=== PATIENT | female | born 1960 | race Two or more races ===

== ENCOUNTER 2019-12-14 11:47 | Outpatient (REF) | payer MEDICARE, MEDICAID, SELFPAY ==
[2019-12-14 13:14] LABS: TSH reflex Free T4 1.12 mIU/mL (0.32-4.0)
[2019-12-15 09:05] LABS: SARS COV2 IgG Positive (Negative)
== END 2019-12-14 11:48 | disposition home or self-care (01) ==
LOC: HO.LAB 11:47
PROVIDERS: PCP Internal Medicine; Visit Provider Internal Medicine
DX: L65.9 Nonscarring hair loss, unspecified (principal); U07.1 COVID-19
CPT/HCPCS: 84443; 86769

== ENCOUNTER 2020-11-06 08:59 | Outpatient (REF) | payer MEDICARE, MEDICAID, SELFPAY ==
[2020-11-06 10:11] LABS: MANUAL DIFF FLAG NO
[2020-11-06 10:17] LABS: Basophils Percent Auto 0.4 % (0-2); Eosinophils Absolute Auto 0.2 X10*3/uL (0.0-0.4); Eosinophils Percent Auto 2.9 % (0-4); Hemoglobin 14.1 g/dl (12.0-16.0); Imm Gran Abs Auto 0.02 X10*3/uL (0.00-0.03); Imm Gran Pct Auto 0.2 % (0.0-0.4); Lymphocytes Absolute Auto 2.4 X10*3/uL (1.2-4.9); Lymphocytes Percent Auto 30.2 % (20-40); Mean Corpuscular Hemoglobin 28.8 pg (27.0-33.0); Mean Platelet Volume 9.5 fL (9.4-12.3); Monocytes Absolute Auto 0.5 X10*3/uL (0.1-1.2); Monocytes Percent Auto 6.2 % (2-11); Neutrophils Absolute Auto 4.8 X10*3/uL (2.0-8.3); Neutrophils Percent Auto 60.1 % (45-73); Platelet Count 325 X10*3/uL (160-400); Red Blood Count 4.89 X10*6/uL (4.20-5.50); Red Cell Distribution Width 12.6 % (11.0-16.0)
[2020-11-06 10:37] LABS: Alanine Aminotransferase 18 U/L (0-31); Albumin Level 3.9 g/dL (3.5-5.0); Alkaline Phosphatase 77 U/L (39-117); Anion Gap 12 (12-20); Aspartate Amino Transferase 14 U/L (5-31); Bilirubin Total 0.5 mg/dL (0.0-1.0); Blood Urea Nitrogen 17 mg/dL (9-16); Calcium 8.9 mg/dL (8.4-10.2); Carbon Dioxide 25 mmol/L (22-29); Chloride 109 mmol/L (96-108); Cholesterol 180 mg/dL; Estimated Glomerular Filt Rate > 60; Glucose Fasting 97 mg/dL (60-99); HDL Cholesterol 52 mg/dL; LDL Cholesterol Calculated 110 mg/dl; Potassium 4.4 mmol/L (3.3-5.1); Sodium 142 mmol/L (135-145); Total Protein 6.1 g/dL (6.5-8.0); Triglycerides 91 mg/dL
[2020-11-12 15:00] LABS: Vitamin D 25-OH, D2 <4 ng/mL; Vitamin D 25-OH, D3 34 ng/mL; Vitamin D 25-OH, Total 34 ng/mL (30-100)
== END 2020-11-06 09:00 | disposition home or self-care (01) ==
LOC: HO.LAB 08:59
PROVIDERS: PCP Internal Medicine; Visit Provider Internal Medicine
DX: G43.909 Migraine, unspecified, not intractable, without status migrainosus (principal); D64.9 Anemia, unspecified; E55.9 Vitamin D deficiency, unspecified; E78.5 Hyperlipidemia, unspecified
CPT/HCPCS: 36415; 80053; 80061; 82306; 85025

== ENCOUNTER 2020-12-10 16:03 | Outpatient (REF) | payer MEDICARE, MEDICAID, SELFPAY ==
--- NOTE | ~2020-12-10 | XR_ITS ---
EXAMINATION: XR CHEST 2 VIEWS CLINICAL INFORMATION: Wheezing. COMPARISON: None. TECHNIQUE: Frontal and lateral views of the chest were obtained. FINDINGS: The heart, great vessels, pulmonary vasculature and mediastinum are normal. The lungs show no focal infiltrate, effusion or pneumothorax. There is bilateral bronchiolar wall thickening. There is no acute osseous abnormality. XR/XR chest 2V IMPRESSION: 1. No focal infiltrate or congestive heart failure seen. 2. There is bilateral bronchiolar wall thickening, which can be associated with acute bronchiolitis or reactive airways disease.
== END 2020-12-10 16:04 | disposition home or self-care (01) ==
LOC: HO.XRAY 16:03
PROVIDERS: PCP Internal Medicine; Visit Provider Internal Medicine
DX: R06.2 Wheezing (principal)
CPT/HCPCS: 71046

== ENCOUNTER 2020-12-24 10:48 | Outpatient (REF) | payer MEDICARE, MEDICAID, SELFPAY ==
[2020-12-24 11:00] LABS: MANUAL DIFF FLAG NO
[2020-12-24 12:09] LABS: Basophils Percent Auto 0.6 % (0-2); Eosinophils Absolute Auto 0.3 X10*3/uL (0.0-0.4); Eosinophils Percent Auto 3.9 % (0-4); Hematocrit 42.9 % (37.0-47.0); Hemoglobin 13.8 g/dl (12.0-16.0); Imm Gran Abs Auto 0.01 X10*3/uL (0.00-0.03); Imm Gran Pct Auto 0.1 % (0.0-0.4); Lymphocytes Absolute Auto 2.9 X10*3/uL (1.2-4.9); Lymphocytes Percent Auto 40.2 % (20-40); Mean Corpuscular HGB Conc 32.2 g/dl (31.0-35.0); Mean Corpuscular Hemoglobin 29.1 pg (27.0-33.0); Mean Corpuscular Volume 90.3 fL (80.0-98.0); Mean Platelet Volume 9.4 fL (9.4-12.3); Monocytes Absolute Auto 0.6 X10*3/uL (0.1-1.2); Monocytes Percent Auto 7.9 % (2-11); Neutrophils Absolute Auto 3.4 x10*3/uL (2.0-8.3); Neutrophils Percent Auto 47.3 % (45-73); Platelet Count 349 X10*3/uL (160-400); Red Blood Count 4.75 X10*6/uL (4.20-5.50); White Blood Count 7.2 X10*3/uL (4.8-10.8)
[2020-12-24 12:40] LABS: Alanine Aminotransferase 20 U/L (0-31); Alkaline Phosphatase 83 U/L (39-117); Anion Gap 11 (12-20); Aspartate Amino Transferase 16 U/L (5-31); Bilirubin Total 0.3 mg/dL (0.0-1.0); Blood Urea Nitrogen 18 mg/dL (9-16); Carbon Dioxide 27 mmol/L (22-29); Chloride 109 mmol/L (96-108); Estimated Glomerular Filt Rate > 60; Glucose Random 104 mg/dL (60-115); Potassium 4.2 mmol/L (3.3-5.1); Sodium 143 mmol/L (135-145); Total Protein 6.4 g/dL (6.5-8.0)
[2020-12-24 12:45] LABS: Thyroid Stimulating Hormone 1.11 uIU/mL (0.32-4.0)
== END 2020-12-24 10:49 | disposition home or self-care (01) ==
LOC: HO.LAB 10:48
PROVIDERS: PCP Internal Medicine; Visit Provider Internal Medicine
DX: R10.9 Unspecified abdominal pain (principal); D64.9 Anemia, unspecified; R63.4 Abnormal weight loss
CPT/HCPCS: 36415; 80053; 84443; 85025

== ENCOUNTER → 2021-05-23 10:57 | Outpatient (BNVA) | payer MEDICARE, MEDICAID, SELFPAY | PROVIDERS: PCP Internal Medicine; Referring Provider Internal Medicine; Visit Provider Internal Medicine Gastroenterology | DX: R10.9 Unspecified abdominal pain (principal); R63.4 Abnormal weight loss; N39.41 Urge incontinence | CPT/HCPCS: 99202 ==

== ENCOUNTER 2021-05-29 08:18 | Day surgery (SDC) | payer MEDICARE, MEDICAID, SELFPAY ==
--- NOTE | 2021-05-28 08:50 | HO.ANESPROP2 ---
Documented by User: Holly Rodrigues NP 05/28/21 08:52 HPI - Anesthesia Eval Consult details Narrative: 60yo F for Upper Endoscopy [facility] Active Problems Active Problems: All Active Problems (Updated 04/15/21 @ 15:11 by Janny Burnett MD) Urge urinary incontinence (Acute) Weight loss (Acute) Abdominal pain (Acute) GERD (gastroesophageal reflux disease) (Acute) Fibromyalgia (Acute) Severe asthma (Acute) Migraines (Acute) Dyslipidemia (Acute) Past Medical History Medical History Abdominal pain Dyslipidemia Fibromyalgia GERD (gastroesophageal reflux disease) Migraines Severe asthma Urge urinary incontinence Weight loss Family History Family History Father Diabetes Mother Diabetes Hypertension Maternal Grandmother Diabetes Maternal Grandfather Diabetes Son In good health Brother In good health Sister In good health Family/Other Mental health disorder Surgical History Surgical History History of total abdominal hysterectomy History of tubal ligation Social History Social History Housing: Apartment Alcohol intake: former Patient Tobacco Use Status: Former Tobacco user Quit Date: 2-3 years ago Tobacco use type: Cigarette e-Cigarette/Vaping Use: Never Used Second Hand Smoke Exposure: No Use of substances other than those prescribed or required for medical reasons: No Are you DNR?: No Advance Directives: No Advance Directives Information Provided: Yes service: No Current occupational status: unemployed Meds Allergies Allergy/AdvReac Type Severity Reaction Status Date / Time statins AdvReac Intermediate elevated Uncoded 05/23/21 11:03 liver enzymes Home Medications Medication Instructions Recorded Confirmed Last Taken Type albuterol sulfate 90 mcg/actuation 2 puff PO Q4H PRN 07/30/20 04/15/21 Unknown History aerosol inhaler alprazolam 1 mg tablet 1 mg PO TID PRN 07/30/20 04/15/21 Unknown History cetirizine 10 mg tablet 10 mg PO BEDTIME 07/30/20 04/15/21 Unknown History citalopram 40 mg tablet 40 mg PO DAILY 07/30/20 04/15/21 Unknown History desvenlafaxine succinate 50 mg 50 mg PO DAILY 07/30/20 04/15/21 Unknown History tablet,extended release 24 hr epinephrine 0.3 mg/0.3 mL 0.3 mg IM ONCE PRN 07/30/20 04/15/21 Unknown History injection, auto-injector estradiol 0.05 mg/24 hr weekly 1 patch TRANSDERMAL QWEEK 07/30/20 04/15/21 Unknown History transdermal patch fluticasone 250 mcg-salmeterol 50 1 ea INHALATION BID 07/30/20 04/15/21 Unknown History mcg/dose blistr powdr for inhalation fluticasone propionate 50 1 spray INTRANASAL DAILY 07/30/20 04/15/21 Unknown History mcg/actuation nasal spray,suspension gabapentin 800 mg tablet 800 mg PO BID 07/30/20 04/15/21 Unknown History hydroxyzine HCl 25 mg tablet [id number] mg PO TID PRN 07/30/20 04/15/21 Unknown History nabumetone 500 mg tablet 500 mg PO BID 07/30/20 04/15/21 Unknown History omalizumab 150 mg subcutaneous mg SUBCUT 07/30/20 04/15/21 Unknown History solution oxybutynin chloride 15 mg 30 mg PO DAILY 07/30/20 04/15/21 Unknown History tablet,extended release 24 hr pantoprazole 40 mg tablet,delayed 40 mg PO DAILY 07/30/20 04/15/21 Unknown History release quetiapine 400 mg tablet,extended 400 mg PO BEDTIME 07/30/20 04/15/21 Unknown History release 24 hr Exam Exam Date and Time: May 28, 2021 0850 Pertinent Lab Results Pertinent Lab Results: Laboratory Tests 12/24/20 12/24/20 10:59 10:59 WBC 7.2 Hgb 13.8 Hct 42.9 Plt Count 349 Sodium 143 Potassium 4.2 Chloride 109 H Carbon Dioxide 27 BUN 18 H Creatinine 0.61 Assessment and Plan Assessment Anesthesia Assessment: Chart Reviewed Documented by User: Yumiko Munoz MD 05/29/21 08:49 [facility] Past Medical History Medical History Abdominal pain Dyslipidemia Fibromyalgia GERD (gastroesophageal reflux disease) Migraines Severe asthma Urge urinary incontinence Weight loss Family History Family History Father Diabetes Mother Diabetes Hypertension Maternal Grandmother Diabetes Maternal Grandfather Diabetes Son In good health Brother In good health Sister In good health Family/Other Mental health disorder Family history of problems with anesthesia: No Surgical History Surgical History History of total abdominal hysterectomy History of tubal ligation History of Problems with Anesthesia: No Social History Social History Housing: Apartment Alcohol intake: former Patient Tobacco Use Status: Former Tobacco user Quit Date: 2-3 years ago Tobacco use type: Cigarette e-Cigarette/Vaping Use: Never Used Second Hand Smoke Exposure: No Use of substances other than those prescribed or required for medical reasons: No Are you DNR?: No Advance Directives: No Advance Directives Information Provided: Yes service: No Current occupational status: unemployed Meds Allergies Allergy/AdvReac Type Severity Reaction Status Date / Time statins AdvReac Intermediate elevated Uncoded 05/23/21 11:03 liver enzymes Home Medications Medication Instructions Recorded Confirmed Last Taken Type albuterol sulfate 90 mcg/actuation 2 puff PO Q4H PRN 07/30/20 04/15/21 Unknown History aerosol inhaler alprazolam 1 mg tablet 1 mg PO TID PRN 07/30/20 04/15/21 Unknown History cetirizine 10 mg tablet 10 mg PO BEDTIME 07/30/20 04/15/21 Unknown History citalopram 40 mg tablet 40 mg PO DAILY 07/30/20 04/15/21 Unknown History desvenlafaxine succinate 50 mg 50 mg PO DAILY 07/30/20 04/15/21 Unknown History tablet,extended release 24 hr epinephrine 0.3 mg/0.3 mL 0.3 mg IM ONCE PRN 07/30/20 04/15/21 Unknown History injection, auto-injector estradiol 0.05 mg/24 hr weekly 1 patch TRANSDERMAL QWEEK 07/30/20 04/15/21 Unknown History transdermal patch fluticasone 250 mcg-salmeterol 50 1 ea INHALATION BID 07/30/20 04/15/21 Unknown History mcg/dose blistr powdr for inhalation fluticasone propionate 50 1 spray INTRANASAL DAILY 07/30/20 04/15/21 Unknown History mcg/actuation nasal spray,suspension gabapentin 800 mg tablet 800 mg PO BID 07/30/20 04/15/21 Unknown History hydroxyzine HCl 25 mg tablet [id number] mg PO TID PRN 07/30/20 04/15/21 Unknown History nabumetone 500 mg tablet 500 mg PO BID 07/30/20 04/15/21 Unknown History omalizumab 150 mg subcutaneous mg SUBCUT 07/30/20 04/15/21 Unknown History solution oxybutynin chloride 15 mg 30 mg PO DAILY 07/30/20 04/15/21 Unknown History tablet,extended release 24 hr pantoprazole 40 mg tablet,delayed 40 mg PO DAILY 07/30/20 04/15/21 Unknown History release quetiapine 400 mg tablet,extended 400 mg PO BEDTIME 07/30/20 04/15/21 Unknown History release 24 hr Exam Airway Mallampati Class: II TM Dist: >3cm Neck ROM: Full Assessment and Plan Assessment Anesthesia Assessment: Anesthesia Plan Discussed Final Anesthetic Review Family History of Problems with Anesthesia: No History of Problems with Anesthesia: No NPO: Yes ASA Class: II Final Preanesthetic Review: No Changes in Pt Med Stat, Meds/Allgs Chart Reviewed, Consent Obtained/Reviewed and Anes Risks/Benef Reviewed Patient Risk: Intermediate Procedure Risk: Low Anesthetic Plan Anesthetic Plan: MAC: Disposition: Standard PACU
[2021-05-29] VITALS (8 sets, daily range): BP systolic 103–138; BP diastolic 64–86; PULSE 88–105; RESP 16–20; TEMP 36.2–36.6; O2SAT 95–100; BMI 19.5
[2021-05-29] MEDS: Lactated Ringers 1,000 ML 100 ML IVCONT (08:52)
--- NOTE | 2021-05-29 09:09 | MHC.SHP ---
Pre-Procedural Eval Section A Date of Service: 05/29/21 The patient is an INPATIENT: No The History & Physical has been completed within 30 days and I have reviewed it.: Yes Section B Chief Complaint: pain and wt loss Relevant Family History (Specify if Yes): No Relevant Social History: None Present Medications: see Short Stay Collaborative assessment Medical History: Significant History (Abdominal pain Dyslipidemia Fibromyalgia GERD (gastroesophageal reflux disease) Migraines Severe asthma Urge urinary incontinence Weight loss) History of Previous Operations: Relevant previous surgery/procedure and date(s) (History of total abdominal hysterectomy History of tubal ligation) Allergies: Allergies Allergy/AdvReac Type Severity Reaction Status Date / Time statins AdvReac Intermediate elevated Uncoded 05/23/21 11:03 liver enzymes Review of Systems Sugical H&P ROS: Negative: Constitution, Cardiovascular, Respiratory, Neurological, Psychiatric, Hem-Onc, Allergic/Immunologic, Gastrointestinal, Genitourinary, Musculoskeletal, Integumentary, Endocrine and Eyes/Ears/Nose/Throat Exam Surgical H&P Exam: Normal: HEENT, Normal: Heart, Normal: Lungs, Normal: Extremities, Normal: Abdomen, Normal: Skin and Normal: Neurological Plan Diagnosis/Plan: Unchanged I have reviewed the history and physical and performed a pertinent physical examination on my patient. No changes have occurred unless specified.
--- NOTE | 2021-05-29 09:20 | P.BOP_ITS ---
Brief Operative Note Date of Service: 05/29/21 Pre-op diagnosis: weight loss, dysphagia, abdominal pain Post-op diagnosis: same Procedure: see op note Surgeon: Jorge Cheek MD Anesthesia: MAC Was an Psychiatric Cns used for this Procedure?: No Estimated blood loss (mL): 0 Condition: stable Disposition: PACU
--- NOTE | 2021-05-29 09:21 | W.PM.OPN ---
Operative Note Operative Note Date of Service: 05/29/21 Narrative: Procedure Description: EGD Indication: weight loss, dysphagia, abdominal pain Anesthesia: MAC FLEXIBLE TRANSORAL UPPER GASTROINTESTINAL ENDOSCOPY UPPER ENDOSCOPY Consent: Indications for the procedure and potential complications of bleeding, perforation, reaction to medications and missed diagnosis were discussed with the patient and informed consent was obtained. Instrument: Olympus GIF H 190 J mid size upper endoscope Monitoring: Vital signs and clinical assessment, continuous EKG monitoring, Pulse oximetry, Carbon Dioxide monitoring and blood pressure monitoring were done throughout the procedure. Procedure: The patient was placed in the left lateral decubitis position and pre-procedure medications were administered and a bite block was placed. The endoscope was inserted into the mouth and advanced under direct vision to the third part of duodenum. A careful inspection was made as the upper endoscope was withdrawn including a retroflexed examination of the proximal stomach; Findings and interventions are described below. Findings: Larynx:normal Esophagus: GE junction at 38 cm, diaphragm hiatus at 38 cm, mild esophagitis, bx taken from GEJ and proximal and distal esophagus in separate jars. Ballon dilation done at LES to 20 mm- no tear seen, then proximal esophagus with superficial tear and some heme noted. There did appear to be tertiary contractions. Stomach: mild patchy gastric erythema. Biopsies were obtained. Grade 2 flap valve on retroflexed examination of the cardia. There was no observable gastric movement for the time of the procedure. Duodenum: Normal bulb and descending duodenum, bx taken Intervention: Biopsies as noted above, ballon dilation Impression/Findings: esophagitis esophageal and gastric dysmotility gastritis proximal esophgeal stricture PLAN: assess compliance with PPI--if taking correctly then can increase to BID CT A/P for further work up of weight loss if above neg then further w/u might include GES and esophageal manometry
--- NOTE | 2021-05-29 09:42 | HO.ANESPROP2 ---
[facility] Active Problems Active Problems: All Active Problems (Updated 04/15/21 @ 15:11 by Janny Burnett MD) Urge urinary incontinence (Acute) Weight loss (Acute) Abdominal pain (Acute) GERD (gastroesophageal reflux disease) (Acute) Fibromyalgia (Acute) Severe asthma (Acute) Migraines (Acute) Dyslipidemia (Acute) Past Medical History Medical History Abdominal pain Dyslipidemia Fibromyalgia GERD (gastroesophageal reflux disease) Migraines Severe asthma Urge urinary incontinence Weight loss Family History Family History Father Diabetes Mother Diabetes Hypertension Maternal Grandmother Diabetes Maternal Grandfather Diabetes Son In good health Brother In good health Sister In good health Family/Other Mental health disorder Family history of problems with anesthesia: No Surgical History Surgical History History of total abdominal hysterectomy History of tubal ligation History of Problems with Anesthesia: No Social History Social History Housing: Apartment Alcohol intake: former Patient Tobacco Use Status: Former Tobacco user Quit Date: 2-3 years ago Tobacco use type: Cigarette e-Cigarette/Vaping Use: Never Used Second Hand Smoke Exposure: No Use of substances other than those prescribed or required for medical reasons: No Are you DNR?: No Advance Directives: No Advance Directives Information Provided: Yes service: No Current occupational status: unemployed Meds Allergies Allergy/AdvReac Type Severity Reaction Status Date / Time statins AdvReac Intermediate elevated Uncoded 05/23/21 11:03 liver enzymes Active Medications: Current Medications Albuterol Sulfate (Albuterol Sulfate (0.083%) 2.5 Mg/3 Ml Vial.Neb) 2.5 mg INHALE ONCE PRN PRN Reason: Shortness of Breath/Wheezing Lactated Ringer's (Lr) 1,000 mls @ 100 mls/hr IVCONT .Q10H HERRERA Last Admin: 05/29/21 08:52 Dose: 100 mls/hr Documented by: Home Medications Medication Instructions Recorded Confirmed Last Taken Type albuterol sulfate 90 mcg/actuation 2 puff PO Q4H PRN 07/30/20 04/15/21 Unknown History aerosol inhaler alprazolam 1 mg tablet 1 mg PO TID PRN 07/30/20 04/15/21 Unknown History cetirizine 10 mg tablet 10 mg PO BEDTIME 07/30/20 04/15/21 Unknown History citalopram 40 mg tablet 40 mg PO DAILY 07/30/20 04/15/21 Unknown History desvenlafaxine succinate 50 mg 50 mg PO DAILY 07/30/20 04/15/21 Unknown History tablet,extended release 24 hr epinephrine 0.3 mg/0.3 mL 0.3 mg IM ONCE PRN 07/30/20 04/15/21 Unknown History injection, auto-injector estradiol 0.05 mg/24 hr weekly 1 patch TRANSDERMAL QWEEK 07/30/20 04/15/21 Unknown History transdermal patch fluticasone 250 mcg-salmeterol 50 1 ea INHALATION BID 07/30/20 04/15/21 Unknown History mcg/dose blistr powdr for inhalation fluticasone propionate 50 1 spray INTRANASAL DAILY 07/30/20 04/15/21 Unknown History mcg/actuation nasal spray,suspension gabapentin 800 mg tablet 800 mg PO BID 07/30/20 04/15/21 Unknown History hydroxyzine HCl 25 mg tablet [id number] mg PO TID PRN 07/30/20 04/15/21 Unknown History nabumetone 500 mg tablet 500 mg PO BID 07/30/20 04/15/21 Unknown History omalizumab 150 mg subcutaneous mg SUBCUT 07/30/20 04/15/21 Unknown History solution oxybutynin chloride 15 mg 30 mg PO DAILY 07/30/20 04/15/21 Unknown History tablet,extended release 24 hr pantoprazole 40 mg tablet,delayed 40 mg PO DAILY 07/30/20 04/15/21 Unknown History release quetiapine 400 mg tablet,extended 400 mg PO BEDTIME 07/30/20 04/15/21 Unknown History release 24 hr Exam Exam Date and Time: May 29, 2021 0942 Height,Weight and Vital Signs: Height 5 ft 3 in Weight 49.895 kg Last Vital Signs Temp 98 F 05/29/21 08:51 Pulse 88 05/29/21 08:51 Resp 16 05/29/21 08:51 BP 138/86 05/29/21 08:51 Pulse Ox 100 05/29/21 08:51 Airway Mallampati Class: II TM Dist: >3cm Neck ROM: Full Assessment and Plan Assessment Anesthesia Assessment: Anesthesia Plan Discussed, Smoking Cess. Discussed and Chart Reviewed Final Anesthetic Review Family History of Problems with Anesthesia: No History of Problems with Anesthesia: No NPO: Yes
--- NOTE | 2021-05-29 10:57 | PC.NURSE ---
UDN GIVEN TO PT FOR BRONCHOSPASTIC COUGH, AND LEFT UPPER INSP WHEEZE. UNRELIEVED AFTER 2 PUFFS ALBUTEROL MDI, PT'S. NOTIFIED DR. KING AND DR. MENDENHALL. 11:00 R.T. GIVING TREATMENT
[2021-05-29] MEDS: Albuterol Sulfate (0.083%) 2.5 MG/3 ML VIAL.NEB INHALE (11:01)
== END 2021-05-29 11:28 | disposition home or self-care (01) ==
PROVIDERS: PCP Internal Medicine; Visit Provider Internal Medicine Gastroenterology
PROC: 0DJ08ZZ Inspection of Upper Intestinal Tract, Via Natural or Artificial Opening Endoscopic (ICD-10-PCS; CPT 43235; principal; 2021-05-29 09:30)
DX: R10.11 Right upper quadrant pain (principal); R63.4 Abnormal weight loss; K22.2 Esophageal obstruction; K22.4 Dyskinesia of esophagus; K20.90 Esophagitis, unspecified without bleeding; K59.9 Functional intestinal disorder, unspecified; K44.9 Diaphragmatic hernia without obstruction or gangrene; K75.81 Nonalcoholic steatohepatitis (NASH); J45.998 Other asthma; E78.5 Hyperlipidemia, unspecified; M54.50 Low back pain, unspecified; G89.29 Other chronic pain; N39.41 Urge incontinence; Z88.8 Allergy status to other drugs, medicaments and biological substances; Z87.891 Personal history of nicotine dependence; Z98.890 Other specified postprocedural states
CPT/HCPCS: 43249; 43239; 88305; 88342; 94640; J2250; J3010

== ENCOUNTER 2021-06-05 10:55 | Outpatient (REF) | payer MEDICARE, MEDICAID, SELFPAY ==
[2021-06-05 11:13] LABS: MANUAL DIFF FLAG NO
[2021-06-05 11:38] LABS: Basophils Percent Auto 0.4 % (0-2); Eosinophils Absolute Auto 0.1 X10*3/uL (0.0-0.4); Eosinophils Percent Auto 1.1 % (0-4); Hematocrit 41.9 % (37.0-47.0); Hemoglobin 13.5 g/dl (12.0-16.0); Imm Gran Abs Auto 0.02 X10*3/uL (0.00-0.03); Imm Gran Pct Auto 0.3 % (0.0-0.4); Lymphocytes Absolute Auto 2.2 X10*3/uL (1.2-4.9); Lymphocytes Percent Auto 31.3 % (20-40); Mean Corpuscular HGB Conc 32.2 g/dl (31.0-35.0); Mean Corpuscular Hemoglobin 29.2 pg (27.0-33.0); Mean Corpuscular Volume 90.5 fL (80.0-98.0); Mean Platelet Volume 9.3 fL (9.4-12.3); Monocytes Absolute Auto 0.4 X10*3/uL (0.1-1.2); Neutrophils Absolute Auto 4.4 x10*3/uL (2.0-8.3); Neutrophils Percent Auto 61.9 % (45-73); Platelet Count 316 X10*3/uL (160-400); Red Blood Count 4.63 X10*6/uL (4.20-5.50); Red Cell Distribution Width 12.9 % (11.0-16.0)
[2021-06-05 12:07] LABS: Appearance Urine CLEAR; Color Urine YELLOW; Glucose Urine UA NEG (NEG); Leukocyte Esterase Urine NEG (NEG); Nitrite Urine NEG (NEG); Urine Blood NEG (NEG); Urine Ketones NEG (NEG); Urine Protein NEG (NEG-TRACE)
[2021-06-05 12:23] LABS: ~Hepatitis C Antibody Nonreactive (Nonreactive)
[2021-06-05 12:25] LABS: Alanine Aminotransferase 34 U/L (0-31); Albumin Level 4.3 g/dL (3.5-5.0); Alkaline Phosphatase 81 U/L (39-117); Anion Gap 10 (12-20); Aspartate Amino Transferase 26 U/L (5-31); Bilirubin Total 0.7 mg/dL (0.0-1.0); Blood Urea Nitrogen 15 mg/dL (9-16); Calcium 9.4 mg/dL (8.4-10.2); Carbon Dioxide 27 mmol/L (22-29); Chloride 108 mmol/L (96-108); Cholesterol 255 mg/dL; Estimated Glomerular Filt Rate > 60; Ferritin 409 ng/mL (10-250); Glucose Random 96 mg/dL (60-115); HDL Cholesterol 67 mg/dL; LDL Cholesterol Calculated 177 mg/dl; Potassium 4.1 mmol/L (3.3-5.1); Sodium 141 mmol/L (135-145); TSH reflex Free T4 0.72 uIU/mL (0.32-4.0); Triglycerides 57 mg/dL
[2021-06-05 12:30] LABS: HIV AB/AG Nonreactive (Nonreactive); Hepatitis B Core Antibody Nonreactive (Nonreactive); Hepatitis B Surface Antigen Negative (Negative); ~HepC Num1 0.12 S/CO (0.00-0.79); ~Hepatitis B Surface Antibody NONREACTIVE (Nonreactive)
[2021-06-05 12:46] LABS: Folate 15.8 ng/mL (> or = 4.0); Vitamin B12 449 pg/mL (200-900)
[2021-06-05 15:15] LABS: EOS Counted 0 CELLS; EOS QC POS YES; EOS Stain Quality OK YES; WBC, Counted 100 CELLS
[2021-06-06 09:56] LABS: HBS Num1 1.07 mIU/mL (0-7.99); HBc Num1 0.05 S/CO (0.00-0.79); HBsAGNum1 0.17 S/CO (0.00-0.99); HIV Num 1 0.07 S/CO (0.00-0.99)
[2021-06-06 11:26] LABS: Hepatitis A Antibody IgM 0.25 Index (0-0.79); ~Hepatitis A Antibody IgM Nonreactive (Nonreactive)
[2021-06-10 15:36] LABS: Fecal Fat Qualitative Normal (Normal)
[2021-06-11 14:11] LABS: Transglutaminase Ab IgG <1.0 U/mL; Transglutaminase IgA <1.0 U/mL
[2021-06-14 17:22] LABS: Pancreatic Elastase-1 >500 mcg/g
== END 2021-06-05 10:56 | disposition home or self-care (01) ==
LOC: HO.LAB 10:55
PROVIDERS: PCP Internal Medicine; Visit Provider Internal Medicine Gastroenterology
DX: Z11.4 Encounter for screening for human immunodeficiency virus [HIV] (principal); K75.81 Nonalcoholic steatohepatitis (NASH); N39.41 Urge incontinence; R10.9 Unspecified abdominal pain; R63.4 Abnormal weight loss; R30.0 Dysuria; G89.29 Other chronic pain; R10.33 Periumbilical pain; E78.5 Hyperlipidemia, unspecified
CPT/HCPCS: 36415; 80053; 80061; 81003; 82607; 82656; 82705; 82728; 82746; 84443; 85025; 86140; 86364; 86704; 86706; 86709; 86803; 87340; 87389; 89190

== ENCOUNTER 2021-06-11 09:42 | Outpatient (REF) | payer MEDICARE, MEDICAID, SELFPAY ==
--- NOTE | ~2021-06-11 | US_ITS ---
EXAMINATION: US COMPLETE ABDOMEN WITH LIVER ELASTOGRAPHY CLINICAL INFORMATION: Weight loss, right upper quadrant pain. COMPARISON: Abdominal ultrasound dated 01/25/2018. TECHNIQUE: Real-time imaging of the abdominal viscera. Noninvasive ultrasound liver fibrosis assessment is performed using Lenora ElastPQ point quantification shear wave elastography (2D-SWE) with a C5-2 MHz transducer. Multiple elastography samples are obtained. FINDINGS: PANCREAS: Visualized portions unremarkable. ABDOMINAL AORTA: Visualized portions unremarkable. INFERIOR VENA CAVA: Visualized portions unremarkable. LIVER: Homogeneous echotexture without focal abnormality. The right lobe measures 11.6 cm in length. The left lobe measures 8.3 cm in length. Portal flow is hepatopedal. Shear wave liver elastography median stiffness is 1.51 m/s (reference: normal median stiffness is 1.3 m/s or less). IQR/median stiffness to assess sampling precision is 0.16 (reference: good quality data set is IQR/median stiffness of 0.15 or less). GALLBLADDER: Unremarkable. COMMON BILE DUCT: Normal in caliber measuring 0.2 cm in diameter. RIGHT KIDNEY: 9.9 cm. Anechoic cyst in the lower pole measures 2.2 cm. LEFT KIDNEY: 10.0 cm. An anechoic cyst in the interpolar region measures 1.1 cm. An interpolar echogenic focus measures 0.4 cm. SPLEEN: 7.3 cm. Unremarkable. FREE FLUID: None. US/US abdomen comp w elastography IMPRESSION: 1. Renal cysts bilaterally demonstrate benign features. Tiny echogenic focus in the left kidney is nonspecific, but demonstrates benign features. This could represent a tiny angiomyolipoma. 2. Liver elastography: Compensated advanced chronic liver disease is ruled out.No focal hepatic abnormality. REFERENCE: Society of Radiologists in Ultrasound Liver Stiffness Thresholds (2020): LIVER STIFFNESS THRESHOLDS: *Liver Stiffness equal or less than 1.3 m/s: High probability of being normal. *Liver Stiffness less than 1.7 m/s: In the absence of other known clinical signs, rules out compensated advanced chronic liver disease. *Liver Stiffness 1.7-2.1 m/s: Suggestive of compensated advanced chronic liver disease but need further test for confirmation. *Liver Stiffness over 2.1 m/s: Rules in compensated advanced chronic liver disease. *Liver Stiffness over 2.4 m/s: Suggestive of clinically significant portal hypertension. QUALITY OF DATA SET: *IQR/Median value equal or less than 0.15 implies a quality data set. *IQR/Median value over 0.15 implies a poor quality data set. SIGNIFICANT CHANGE FROM PRIOR EXAM: Significant change if liver stiffness measurement is 10% or greater from prior exam. OTHER CONSIDERATIONS: The stage of liver fibrosis may be overestimated in the setting of acute hepatitis, liver inflammation, elevated liver function tests, hepatic vascular congestion, obstructive cholestasis, non-fasting state, and infiltrative diseases such as amyloidosis and lymphoma. In some patients with NAFLD, the liver stiffness thresholds for compensated advanced chronic liver disease may be lower. In causes other than viral hepatitis and NAFLD, liver stiffness thresholds are not well established.
== END 2021-06-11 09:43 | disposition home or self-care (01) ==
LOC: HO.US 09:42
PROVIDERS: Visit Provider Internal Medicine Gastroenterology
DX: R10.9 Unspecified abdominal pain (principal); R63.4 Abnormal weight loss
CPT/HCPCS: 76705; 76981

== ENCOUNTER 2021-12-04 13:51 | Outpatient (REF) | payer MEDICARE, MEDICAID, SELFPAY ==
[2021-12-04 14:47] LABS: Alanine Aminotransferase 16 U/L (0-31); Albumin Level 4.2 g/dL (3.5-5.0); Alkaline Phosphatase 82 U/L (39-117); Anion Gap 16 (12-20); Aspartate Amino Transferase 17 U/L (5-31); Bilirubin Total 0.9 mg/dL (0.0-1.0); Blood Urea Nitrogen 18 mg/dL (9-16); Calcium 8.6 mg/dL (8.4-10.2); Carbon Dioxide 22 mmol/L (22-29); Chloride 108 mmol/L (96-108); Cholesterol 251 mg/dL; Estimated Glomerular Filt Rate > 60; Glucose Fasting 96 mg/dL (60-99); HDL Cholesterol 67 mg/dL; LDL Cholesterol Calculated 155 mg/dl; Potassium 4.1 mmol/L (3.3-5.1); Sodium 142 mmol/L (135-145); Total Protein 6.7 g/dL (6.5-8.0); Triglycerides 149 mg/dL
== END 2021-12-04 13:52 | disposition home or self-care (01) ==
LOC: HO.LAB 13:51
PROVIDERS: PCP Internal Medicine; Visit Provider Internal Medicine
DX: K21.9 Gastro-esophageal reflux disease without esophagitis (principal); E78.5 Hyperlipidemia, unspecified
CPT/HCPCS: 36415; 80053; 80061

== ENCOUNTER 2022-05-28 14:14 | Outpatient (REF) | payer MEDICARE, MEDICAID, SELFPAY ==
--- NOTE | ~2022-05-28 | US_ITS ---
EXAMINATION: US VENOUS ULTRASOUND WITH DOPPLER LOWER EXTREMITY, LEFT CLINICAL INFORMATION: Pain left leg COMPARISON: None available. TECHNIQUE: Ultrasound of the deep veins is performed from the hip to the calf with compression sonography and color and pulse Doppler assessment. Spectral analysis with color-flow imaging is performed. FINDINGS: There is normal venous compression and respiratory variation and augmented flow. The visualized common femoral vein, superficial femoral vein, profunda femoral vein, popliteal vein, and the trifurcation region shows no evidence of deep venous thrombosis. There is no significant popliteal fossa cyst. If the patient's symptoms persist, followup ultrasound in 5 days 7 days might be of value to exclude proximal propagation from a non-visualized calf vein. US/US venous duplex LE LT IMPRESSION: No DVT demonstrated in the left lower extremity.
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
== END 2022-05-28 14:15 | disposition home or self-care (01) ==
LOC: HO.US 14:14
PROVIDERS: PCP Internal Medicine; Visit Provider Internal Medicine
DX: M79.605 Pain in left leg (principal); S92.902A Unspecified fracture of left foot, initial encounter for closed fracture; X58.XXXA Exposure to other specified factors, initial encounter; Y93.9 Activity, unspecified; Y92.9 Unspecified place or not applicable; Y99.9 Unspecified external cause status
CPT/HCPCS: 73620; 93971

== ENCOUNTER 2022-06-04 07:52 | Outpatient (REF) | payer MEDICARE, MEDICAID, SELFPAY ==
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
== END 2022-06-04 07:53 | disposition home or self-care (01) ==
LOC: HO.CT 07:52
PROVIDERS: PCP Internal Medicine; Visit Provider Internal Medicine
DX: S06.0XAA Concussion with loss of consciousness status unknown, initial encounter (principal)
CPT/HCPCS: 70450

== ENCOUNTER 2022-07-07 13:18 | Outpatient (REF) | payer MEDICARE, MEDICAID, SELFPAY ==
--- NOTE | ~2022-07-07 | XR_ITS ---
EXAMINATION: XR LUMBOSACRAL SPINE CLINICAL INFORMATION: Low back pain COMPARISON: None available. TECHNIQUE: Three views of the lumbosacral spine. FINDINGS: Bone alignment is normal. No fracture or dislocation. Normal disc spaces. Mild degenerative spondylosis at L2-L3 and L4-L5. Lower lumbar spine facet arthritis. Mild atherosclerotic disease. XR/XR lumbar spine 2-3V IMPRESSION: Mild degenerative changes.
--- NOTE | ~2022-07-07 | XR_ITS ---
EXAMINATION: XR HIP, RIGHT CLINICAL INFORMATION: Pain COMPARISON: None available. TECHNIQUE: Two views of the right hip. FINDINGS: Bone alignment is normal. No fracture or dislocation. Mild arthritis at the right hip joint with small osteophytes. Soft tissues are normal. XR/XR hip RT min 2V IMPRESSION: Mild arthritis.
== END 2022-07-07 13:19 | disposition home or self-care (01) ==
LOC: HO.XRAY 13:18
PROVIDERS: PCP Internal Medicine; Visit Provider Internal Medicine
DX: M25.551 Pain in right hip (principal); M54.50 Low back pain, unspecified
CPT/HCPCS: 72100; 73502

== ENCOUNTER 2022-08-10 14:27 | Outpatient (REF) | payer MEDICARE, MEDICAID, SELFPAY ==
--- NOTE | ~2022-08-10 | US_ITS ---
EXAMINATION: US PELVIS CLINICAL INFORMATION: Pelvic and perineal pain; there is a history of prior hysterectomy and right oophorectomy. COMPARISON: None available. TECHNIQUE: Ultrasound of the pelvis is performed using both transabdominal and transvaginal transducers along with Doppler. Transvaginal imaging is performed due to inadequate visualization transabdominally. FINDINGS: Uterus: The uterus is surgically absent. The cervical remnant is unremarkable. Adnexa: There is normal color flow to the adnexa. There is no ovarian torsion. There is no pelvic ascites or fluid collection. Right ovary is surgically absent. Left ovary measures 1.2 x 1.1 x 0.9 cm, volume 0.6 mL. US/US pelvic and transvaginal IMPRESSION: 1. The uterus and right ovary are surgically absent. 2. Otherwise, unremarkable examination.
== END 2022-08-10 14:28 | disposition home or self-care (01) ==
LOC: HO.US 14:27
PROVIDERS: PCP Internal Medicine; Visit Provider Internal Medicine
DX: R10.2 Pelvic and perineal pain (principal)
CPT/HCPCS: 76830; 76856

== ENCOUNTER 2022-11-02 11:53 | Outpatient (AMB) | payer MEDICARE, MEDICAID, SELFPAY ==
[2022-11-02 12:24] VITALS: BP 110/62; PULSE 102; TEMP 36.6; O2SAT 98; BMI 22.3
--- NOTE | 2022-11-02 12:24 | AM.OFFWIN_ITS ---
Intake Vital Signs 11/02/22 12:24 Height 5 ft 3 in Weight 126 lb BMI 22.3 BP 110/62 Blood Pressure Location Rt brachial Position Sitting Pulse 102 H Pulse Source Pulse Oximeter Temp 97.8 F Temp Source Temporal Artery Scan Pulse Oximetry (%) 98 Oxygen Delivery Method Room Air Intake Visit Reasons: EP Sore Throat/Ear/Dizzy Weak (masked) Intake Note: pt is here for c.o sore throat, ear discomfort, dizzy/wekness Patient Tobacco Use Status: Former Tobacco user Quit Date: 2-3 years ago Allergies statins Adverse Reaction (Intermediate, Uncoded 11/02/22 12:24) elevated liver enzymes Do you need a note to return to daycare/school/sports/work: Yes HPI HPI Comments History of Present Illness Details This is a 61 year old female with a past medical history of asthma, hepatic steatosis and hyperlipidemia presenting for evaluation of sore throat and weakness that she has had since Wednesday morning. She also reports generalized weakness and lightheadedness. Patient has used Chloraseptic spray only for treatment of her sore throat. She denies having any fevers, chills, ear pain, difficulty swallowing, cough, shortness of breath or chest pain. Patient denies any sick contacts and is requesting a test for COVID-19. [facility] Medical History Urge urinary incontinence Weight loss Abdominal pain GERD (gastroesophageal reflux disease) Fibromyalgia Severe asthma Migraines Dyslipidemia Surgical History History of total abdominal hysterectomy History of tubal ligation Family History Father Diabetes Mother Diabetes Hypertension Maternal Grandmother Diabetes Maternal Grandfather Diabetes Son In good health Brother In good health Sister In good health Family/Other Mental health disorder Social History Housing: Apartment Alcohol intake: former Patient Tobacco Use Status: Former Tobacco user Quit Date: 2-3 years ago Tobacco use type: Cigarette e-Cigarette/Vaping Use: Never Used Second Hand Smoke Exposure: No service: No Current occupational status: unemployed Cognitive needs: Yes (cane) Hearing needs: No Vision needs: No Review of Systems Const All systems reviewed & are unremarkable except as noted in HPI and below Denies chills, Denies fever(s), Reports lethargy and Reports weakness Eyes Reports as per HPI ENT Denies otalgia, Denies facial pain, Denies mouth lesions, Denies sinus pain, Reports sore throat and Denies throat swelling Card Reports no additional complaints Resp Reports no additional complaints GI Reports no additional complaints Neuro Reports weakness Psych Reports no additional complaints Ralph/Lymph Reports lymphadenopathy (right cervical adenopathy) Aller/Immun Denies throat swelling Physical Exam Vital Signs: Last Vital Signs Temp 97.8 F 11/02/22 12:24 Pulse 102 H 11/02/22 12:24 BP 110/62 11/02/22 12:24 Pulse Ox 98 11/02/22 12:24 Oxygen Delivery Method Room Air 11/02/22 12:24 BMI result Body Mass Index 22.3 Const General: comfortable, no acute distress, well developed and well groomed Nutritional Appearance: average body habitus Orientation/consciousness: patient oriented x3 Limitations: no limitations HEENT Head: Yes normal to inspection Ears: external ears normal and TM's normal bilaterally General nose exam: Normal external nose present Mouth: Normal oral and palatal mucosa present and moist mucous membranes Throat: Yes posterior oropharynx abnormal (mild erythema without edema or exudates) and Yes tonsils absent Eyes General: appearance normal, both eyes and all related structures Conjunctivae: conjunctivae normal Sclerae: sclerae normal Pupils: Equal, round and reactive pupils present EOM: EOMs intact bilaterally Neck Neck: Yes lymphadenopathy (right posterior cervical; single node palpable and non.tender) Resp Effort & Inspection: normal respiratory effort Auscultation: clear to auscultation bilaterally Cardio Rate: regular rate Rhythm: regular rhythm Skin General skin exam: no rashes or lesions noted Neuro General: patient oriented x3 Cranial nerves: Yes Equal, round and reactive pupils present Psych Appearance: grossly normal Mental Status: mental status grossly normal Speech and movement: Normal speech and movement present Affect: normal affect Attitude: cooperative Thought process: Normal thought process present Thought content: Normal thought content present Insight: Good insight present (Psych) Judgement: Good judgement present (Psych) Results AMB Rapid Strep AMB Rapid Strep Negative Last Edit by Kenney Hawk CMA on 11/02/22 12 :34 Results Reviewed Results Reviewed: Laboratory Last Values Strep Scn Rapid Clinic Negative 11/02/22 12:32 Assessment & Plan Assessment & Plan (1) Weakness: Code(s): R53.1 - Weakness Plan: Patient seen and evaluated. Her rapid strep test is negative. Patient will be sent to laboratory for a COVID test and will be discharged home. Patient is encouraged to use ibuprofen as needed for her acute pharyngitis; COVID result is pending. 2pm: COVID testing reviewed and is negative. (2) Acute pharyngitis: Code(s): J02.9 - Acute pharyngitis, unspecified Qualifiers: Pharyngitis/tonsillitis etiology: unspecified etiology Qualified Code(s): J02.9 - Acute pharyngitis, unspecified Orders: Orders BinaxNOW Covid-19 Ag Today J02.9 - Acute pharyngitis, unspecified, R53.1 - Weakness Geetha Hassan PA-C AMB Rapid Strep Screen Today Z13.9 - Encounter for screening, unspecified Jimmy Sneed MD Coding Level of Care Code Est Pt Level 3 (38441) Diagnoses Weakness R53.1 Acute pharyngitis, unspecified etiology J02.9 Pharyngitis/tonsillitis etiology: unspecified etiology Time Spent (min) 20
== END 2022-11-02 13:11 | disposition home or self-care (01) ==
PROVIDERS: PCP Internal Medicine; Visit Provider Physician Assistant
DX: R53.1 Weakness (principal); J02.9 Acute pharyngitis, unspecified
CPT/HCPCS: 87880; 99213

== ENCOUNTER 2022-11-02 13:07 | Outpatient (REF) | payer MEDICARE, MEDICAID, SELFPAY ==
[2022-11-02 13:42] LABS: Binax Internal Control QC Valid; Binax Now Covid-19 Ag Negative (Negative); Binax Performed by: HO.BONILM
== END 2022-11-02 13:08 | disposition home or self-care (01) ==
LOC: HO.HMGCLDS 13:07
PROVIDERS: PCP Internal Medicine; Visit Provider Physician Assistant
DX: J02.9 Acute pharyngitis, unspecified (principal); R53.1 Weakness; Z20.822 Contact with and (suspected) exposure to COVID-19
CPT/HCPCS: 87811; C9803

== ENCOUNTER 2022-11-05 12:10 | Outpatient (AMB) | payer MEDICARE, MEDICAID, SELFPAY ==
[2022-11-05 12:12] VITALS: BP 120/62; PULSE 83; TEMP 36.1; O2SAT 98; BMI 22.3
--- NOTE | 2022-11-05 12:12 | AM.OFFWIN_ITS ---
Intake Vital Signs 11/05/22 12:12 Height 5 ft 3 in Weight 126 lb BMI 22.3 BP 120/62 Blood Pressure Location Rt brachial Position Sitting Pulse 83 Pulse Source Pulse Oximeter Temp 97 F Temp Source Temporal Artery Scan Pulse Oximetry (%) 98 Oxygen Delivery Method Room Air Intake Visit Reasons: EP, cough, congestion Intake Note: Pt is here c/o cough and chest congestion. Pt wsas advised to take otc medication on 11/02 as she was negative for viral illness and strep. Pt states she did not take anything. Patient Tobacco Use Status: Former Tobacco user Quit Date: 2-3 years ago Allergies statins Adverse Reaction (Intermediate, Uncoded 11/05/22 12:15) elevated liver enzymes Do you need a note to return to daycare/school/sports/work: No HPI HPI Comments History of Present Illness Details The patient presents to urgent care for evaluation of sinus congestion. She reports she has had symptoms x2 weeks. Patient reports that over the weekend her symptoms worsened she has been feeling ill with congestion headache sinus pain or pressure. She has had sinus infections in the past and reports this feels similar. She reports some bloody nasal discharge this week as well. No fever or chills. [facility] Medical History Urge urinary incontinence Weight loss Abdominal pain GERD (gastroesophageal reflux disease) Fibromyalgia Severe asthma Migraines Dyslipidemia Surgical History History of total abdominal hysterectomy History of tubal ligation Family History Father Diabetes Mother Diabetes Hypertension Maternal Grandmother Diabetes Maternal Grandfather Diabetes Son In good health Brother In good health Sister In good health Family/Other Mental health disorder Social History Housing: Apartment Alcohol intake: former Patient Tobacco Use Status: Former Tobacco user Quit Date: 2-3 years ago Tobacco use type: Cigarette e-Cigarette/Vaping Use: Never Used Second Hand Smoke Exposure: No service: No Current occupational status: unemployed Cognitive needs: Yes (cane) Hearing needs: No Vision needs: No Review of Systems Const Reports headache(s) and Denies increased appetite ENT Reports headache(s), Reports nasal obstruction, Denies disequilibrium, Reports post nasal drip, Reports sinus pain and Denies sore throat Card Denies radiating jaw, neck or arm pain and Denies dyspnea Resp Denies hemoptysis and Denies dyspnea Neuro Reports headache(s) and Denies disequilibrium Physical Exam Vital Signs: Last Vital Signs Temp 97 F 11/05/22 12:12 Pulse 83 11/05/22 12:12 BP 120/62 11/05/22 12:12 Pulse Ox 98 11/05/22 12:12 Oxygen Delivery Method Room Air 11/05/22 12:12 BMI result Body Mass Index 22.3 Const General: healthy appearing and no acute distress HEENT Head: Yes normal to inspection Ears: external ears normal General nose exam: Abnormal mucous membranes and turbinates present and Other nasal findings present (max sinus TTP BL) Mouth: Normal oral and palatal mucosa present Throat: Yes posterior oropharynx normal Chest Chest palpation & inspection: normal inspection of the chest Resp Effort & Inspection: normal respiratory effort and able to speak in complete sentences Assessment & Plan Assessment & Plan (1) Sinusitis: Code(s): J32.9 - Chronic sinusitis, unspecified Plan Symptoms consistent with sinusitis. Will treat with antibiotics. Patient well- appearing will follow-up with PCP return here for any reason Medications: New azithromycin For 250 mg dose pack: take 500 mg today (day 1), then 250 mg for 4 days (days 2-5) PO 6 tabs 0RF Coding Level of Care Code Est Pt Level 3 (92485) Diagnoses Sinusitis J32.9
== END 2022-11-05 12:24 | disposition home or self-care (01) ==
LOC: HO.HMGWI 12:10
PROVIDERS: PCP Internal Medicine; Visit Provider Emergency Medicine
DX: J32.9 Chronic sinusitis, unspecified (principal)
CPT/HCPCS: 99213

== ENCOUNTER 2023-01-05 08:20 | Outpatient (AMB) | payer MEDICARE, MEDICAID, SELFPAY ==
--- NOTE | 2023-01-05 08:27 | A.OFFPC_ITS ---
Vital Signs 01/05/23 08:28 Height 5 ft 3 in Weight 125 lb BMI 22.1 BP 128/70 Blood Pressure Location Lt brachial Position Sitting Intake Visit Reasons: follow up Intake Note: Patient here for a follow up [employer] Landscape [employer] Required: No Accompanied by: Self / Same As Patient Allergies statins Adverse Reaction (Intermediate, Uncoded 01/05/23 08:33) elevated liver enzymes Medication List - Last Reconciled 01/05/23 by Janny Burnett MD albuterol sulfate 90 mcg/actuation 2 puffs PO Q4H PRN alprazolam 1 mg PO TID PRN cane As directed cetirizine 10 mg PO BEDTIME citalopram 40 mg PO DAILY colesevelam 1,875 mg (3 x 625 mg) PO BID desvenlafaxine succinate ER 50 mg PO DAILY epinephrine 0.3 mg IM ONCE PRN estradiol 1 patch transdermal QWEEK fluticasone propion-salmeterol 250-50 mcg/dose 1 ea inhalation BID fluticasone propionate 50 mcg/actuation 1 spray intranasal DAILY gabapentin 800 mg PO BID hydroxyzine HCl [id number] mg PO TID PRN Magic Mouthwash Diphen/Lido/Antacid 1:1:1 10 mL PO TID meloxicam 15 mg PO DAILY montelukast 10 mg PO DAILY nabumetone 500 mg PO BID omalizumab mg subcut oxybutynin chloride ER 30 mg PO DAILY pantoprazole 40 mg PO DAILY quetiapine ER 400 mg PO BEDTIME rosuvastatin 10 mg PO DAILY 90 days sumatriptan succinate 50 mg PO Q2-4H PRN 30 days tramadol 50 mg PO Q6H PRN Tobacco use date assessed: 05/28/22 Dental Screening Dental Screen Date: 01/05/23 Did you have a dental visit in the last 12 months?: Yes Did you have a dental problem in the last 6 months where you did not have access to dental care?: No Was dental information given to patient?: Patient has dentist HPI HPI Comments History of Present Illness Details This is a 62-year-old female with severe asthma, dyslipidemia, fibromyalgia that complains of diffuse abdominal pain associated with food as in present for few months. I will order ultrasound of the abdomen. Abdominal pain is accompanied by bloating and excessive amount of gas. Will add simethicone. Asthma has been stable on longstanding inhaler and this is follow by pulmonology. Lipid panel will be order for her dyslipidemia. Compliant with rosuvastatin. Has fibromyalgia has been stable with gabapentin and reports no side effects. [facility] Medical History Urge urinary incontinence Weight loss Abdominal pain GERD (gastroesophageal reflux disease) Fibromyalgia Severe asthma Migraines Dyslipidemia Surgical History History of total abdominal hysterectomy History of tubal ligation Family History Father Diabetes Mother Diabetes Hypertension Maternal Grandmother Diabetes Maternal Grandfather Diabetes Son In good health Brother In good health Sister In good health Family/Other Mental health disorder Social History Housing: Apartment Alcohol intake: former Patient Tobacco Use Status: Former Tobacco user Quit Date: 2-3 years ago Tobacco use type: Cigarette e-Cigarette/Vaping Use: Never Used Second Hand Smoke Exposure: No service: No Current occupational status: unemployed Cognitive needs: Yes (cane) Hearing needs: No Vision needs: No Questionnaire Thrive Questionnaire Date Thrive assessed: 05/28/22 ANGELITA-7 AMB Questionnaire ANGELITA-7 Date ANGELITA - 7 assessed: 05/28/22 Source: Developed by Drs. Carlos Alberto Llanes, Ada Vidal, Israel Maria and colleagues, with an educational eddie from [employer] Review of Systems Const All systems reviewed & are unremarkable except as noted in HPI and below Eyes Reports no additional complaints, Denies change in vision and Denies other visual disturbances Card Denies chest pain at rest, Denies chest pain with activity, Denies edema, Denies irregular heart rhythm, Denies claudication, Denies dyspnea, Denies dyspnea on exertion, Denies orthopnea, Denies paroxysmal nocturnal dyspnea and Denies slow heart rate Resp Denies cough, Denies dyspnea and Denies dyspnea on exertion GI Denies abdominal pain, Denies change in bowel habits, Denies excessive flatus, Denies nausea and Denies vomiting Denies urinary incontinence, Denies urinary hesitancy and Denies urinary urgency Musc Denies abnormal gait, Denies atrophy, Denies deformity and Denies limited range of motion Skin/Breast Denies bleeding lesions, Denies changing lesions and Denies rash Neuro Denies abnormal gait and Denies lack of coordination Physical exam (Primary Care) Vital Signs: Last Vital Signs BP 128/70 01/05/23 08:28 BMI result Body Mass Index 22.1 Tobacco/Smoking Status: Tobacco use Status Tobacco use date assessed 05/28/22 01/05/23 08:29 Patient Tobacco Use Status Former Tobacco user 01/05/23 08:29 Tobacco use type Cigarette 01/05/23 08:29 e-Cigarette/Vaping Use Never Used 01/05/23 08:29 Thrive Assessment: Date of Thrive Assessment Date Thrive assessed 05/28/22 01/05/23 08:29 Eyes General: appearance normal, both eyes and all related structures Eyelids: Yes eyelids normal Conjunctivae: conjunctivae normal Neck Neck: Yes normal visual inspection and Yes supple Resp Effort & Inspection: normal respiratory effort Auscultation: clear to auscultation bilaterally Cardio Jugular venous distension: no JVD Rate: regular rate Rhythm: regular rhythm Heart sounds: S1 normal heart sound present and S2 normal heart sound present GI Inspection: Yes normal to inspection Palpation (GI): Soft to palpation and Tenderness to palpation present (GI) Auscultation: normal bowel sounds Extrem General: Yes full ROM Assessment and Plan Assessment & Plan (1) Abdominal pain: Code(s): R10.9 - Unspecified abdominal pain Plan: Ultrasound of the abdomen ordered. (2) Fibromyalgia: Code(s): M79.7 - Fibromyalgia Plan: Continue gabapentin. (3) Severe asthma: Code(s): J45.909 - Unspecified asthma, uncomplicated Plan: Continue longstanding inhaler. Use rescue inhaler as needed. Follow-up with pulmonology. (4) Dyslipidemia: Code(s): E78.5 - Hyperlipidemia, unspecified Plan: Continue statins. Repeat lipid panel. Orders: Orders Vitamin D 25-OH Total Today E55.9 - Vitamin D deficiency, unspecified US abdomen complete Today R10.9 - Unspecified abdominal pain Lipid Panel Today E78.5 - Hyperlipidemia, unspecified Comprehensive [place]. Panel Fast Today R10.9 - Unspecified abdominal pain Medications: New simethicone (Gas Relief (simethicone)) 180 mg PO BID 30 days PRN 60 caps 1RF abdominal distention Coding Level of Care Code Est Pt Level 4 (98914) Diagnoses Abdominal pain R10.9 Fibromyalgia M79.7 Severe asthma J45.909 Dyslipidemia E78.5 Time Spent (min) 22
[2023-01-05 08:28] VITALS: BP 128/70; BMI 22.1
== END 2023-01-05 08:43 | disposition home or self-care (01) ==
PROVIDERS: PCP Internal Medicine; Visit Provider Internal Medicine
DX: R10.9 Unspecified abdominal pain (principal); M79.7 Fibromyalgia; J45.909 Unspecified asthma, uncomplicated; E78.5 Hyperlipidemia, unspecified
CPT/HCPCS: 99214

== ENCOUNTER 2023-01-05 08:56 | Outpatient (REF) | payer MEDICARE, MEDICAID, SELFPAY ==
[2023-01-05 10:30] LABS: Alanine Aminotransferase 17 U/L (0-31); Albumin Level 4.3 g/dL (3.5-5.0); Alkaline Phosphatase 80 U/L (39-117); Anion Gap 11 (12-20); Aspartate Amino Transferase 19 U/L (5-31); Bilirubin Total 1.4 mg/dL (0.0-1.0); Blood Urea Nitrogen 20 mg/dL (9-16); Calcium 9.4 mg/dL (8.4-10.2); Carbon Dioxide 24 mmol/L (22-29); Chloride 110 mmol/L (96-108); Cholesterol 181 mg/dL (<200); Estimated Glomerular Filt Rate > 60; Glucose Fasting 98 mg/dL (60-99); HDL Cholesterol 66 mg/dL (>40); LDL Cholesterol Calculated 97 mg/dL (<100); Potassium 4.3 mmol/L (3.3-5.1); Sodium 141 mmol/L (135-145); Total Protein 7.1 g/dL (6.5-8.0); Triglycerides 94 mg/dL (<150)
[2023-01-05 10:45] LABS: Vitamin D 25-OH Total 37.4 ng/mL (>30)
== END 2023-01-05 08:57 | disposition home or self-care (01) ==
LOC: HO.LAB 08:56
PROVIDERS: PCP Internal Medicine; Visit Provider Internal Medicine
DX: E55.9 Vitamin D deficiency, unspecified (principal); E78.5 Hyperlipidemia, unspecified; R10.9 Unspecified abdominal pain
CPT/HCPCS: 36415; 80053; 80061; 82306

== ENCOUNTER 2023-03-24 09:43 | Outpatient (REF) | payer MEDICARE, MEDICAID, SELFPAY ==
--- NOTE | ~2023-03-24 | US_ITS ---
EXAMINATION: US ABDOMEN COMPLETE CLINICAL INFORMATION: Unspecified abdominal pain. COMPARISON: Ultrasound abdomen complete with elastography 06/11/2021. Ultrasound abdomen 01/25/2018. TECHNIQUE: Real-time imaging of the abdominal viscera. FINDINGS: PANCREAS: Normal. ABDOMINAL AORTA: The proximal, mid, and distal segments are normal in caliber. INFERIOR VENA CAVA: Visualized portions are normal. LIVER: The liver is normal in size. The liver contour is normal. Parenchymal echogenicity is normal. Within the left hepatic lobe anteriorly, a 1.4 x 0.8 x 1.1 cm hyperechoic, circumscribed mass is seen. There is no intrahepatic biliary duct dilatation seen. GALLBLADDER: Normal. The gallbladder is physiologically distended without evidence of stones, sludge, polyps, wall thickening or pericholecystic fluid. COMMON BILE DUCT: Normal in caliber measuring 0.2 cm in diameter. RIGHT KIDNEY: No hydronephrosis or renal calculi. The kidney measures 10.6 cm in maximum dimension. Within the mid right kidney, a 1.9 cm benign, simple cyst is redemonstrated, which requires no imaging follow-up. LEFT KIDNEY: No hydronephrosis. The kidney measures 10.3 cm in maximum dimension. At the interpolar aspect, a 1.5 cm benign, simple cyst is seen, which requires no imaging follow-up. There is a 4 mm interpolar hyperechoic focus which does not meet formal ultrasound criteria for a calculus. No definite calculus is seen. There is no hydronephrosis. 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 SPLEEN: Normal. The spleen measures 7.2 cm in maximum dimension. FREE FLUID: None. US/US abdomen complete IMPRESSION: 1. Within the left hepatic lobe, a 1.4 cm hyperechoic, circumscribed mass is seen, with ultrasound features characteristic for a benign hemangioma. This is of doubtful clinical significance. If relevant to patient management (i.e., history of hepatocellular disease or known malignancy), this can be further evaluated with dynamic MRI. 2. 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
== END 2023-03-24 09:44 | disposition home or self-care (01) ==
LOC: HO.US 09:43
PROVIDERS: PCP Internal Medicine; Visit Provider Internal Medicine
DX: R10.9 Unspecified abdominal pain (principal)
CPT/HCPCS: 76700

== ENCOUNTER 2023-04-28 15:48 | Outpatient (AMB) | payer MEDICARE, MEDICAID, SELFPAY ==
--- NOTE | 2023-04-28 15:53 | AM.OFFVISMDC ---
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 Accompanied by: Self / Same As Patient Allergies statins Adverse Reaction (Intermediate, Uncoded 04/28/23 16:57) elevated liver enzymes Medication List - Last Reconciled 04/28/23 by Janny Burnett MD albuterol sulfate 90 mcg/actuation 2 puffs PO Q4H PRN alprazolam 1 mg PO TID PRN cane As directed cetirizine 10 mg PO BEDTIME citalopram 40 mg PO DAILY colesevelam 1,875 mg (3 x 625 mg) PO BID desvenlafaxine succinate ER 50 mg PO DAILY epinephrine 0.3 mg IM ONCE PRN estradiol 1 patch transdermal QWEEK fluticasone propion-salmeterol 250-50 mcg/dose 1 ea inhalation BID fluticasone propionate 50 mcg/actuation 1 spray intranasal DAILY gabapentin 800 mg PO BID hydroxyzine HCl [id number] mg PO TID PRN Magic Mouthwash Diphen/Lido/Antacid 1:1:1 10 mL PO TID montelukast 10 mg PO DAILY nabumetone 500 mg PO BID omalizumab mg subcut oxybutynin chloride ER 30 mg PO DAILY pantoprazole 40 mg PO DAILY quetiapine ER 400 mg PO BEDTIME rosuvastatin 10 mg PO DAILY 90 days simethicone (Gas Relief (simethicone)) 180 mg PO BID PRN 30 days sumatriptan succinate 50 mg PO Q2-4H PRN 30 days tramadol 50 mg PO Q6H PRN HPI HPI Comments History of Present Illness Details This is a 62-year-old female with severe major depression that comes for her Medicare annual wellness exam. Last mammogram was 2022. Pap smear is up today by her OBGYN. Last colonoscopy was 2018 and was normal. Has not had a bone density test and will be order. PPP handed to patient. Depression is follow by Psychiatry and also has an elevated score clinically does not correlate to the score. Patient is laughing and smiling. [facility] Medical History (Updated 04/28/23 @ 17:36 by Janny Burnett MD) Urge urinary incontinence Weight loss Abdominal pain GERD (gastroesophageal reflux disease) Fibromyalgia Severe asthma Migraines Dyslipidemia Surgical History History of total abdominal hysterectomy History of tubal ligation Family History Father Diabetes Mother Diabetes Hypertension Maternal Grandmother Diabetes Maternal Grandfather Diabetes Son In good health Brother In good health Sister In good health Family/Other Mental health disorder Social History Housing: Apartment Alcohol intake: former Patient Tobacco Use Status: Former Tobacco user Quit Date: 2-3 years ago Tobacco use type: Cigarette e-Cigarette/Vaping Use: Never Used Second Hand Smoke Exposure: No service: No Current occupational status: unemployed Cognitive needs: Yes (cane) Hearing needs: No Vision needs: No Questionnaire Medicare Wellness Checkup What gender do you identify with?: female During the past 4 weeks, how much have you been bothered by emotional problems such as feeling anxious, depressed, irritable, sad or downhearted, and blue?: moderately During the past 4 weeks, has your physical & emotional health limited your social activities with family, friends, neighbors, or groups?: quite a bit During the past 4 weeks, how much bodily pain have you generally had?: very mild pain During the past 4 weeks, was someone available to help you if you needed & wanted help?: no, not at all During the past 4 weeks, what was the hardest physical activity you could do for at least 2 minutes?: very light Can you get to places out of walking distance without help? (For eg., can you travel alone on buses, taxis or drive your car?): Yes Can you go shopping for groceries or clothes without someone's help?: Yes Can you prepare your own meals?: Yes Can you do your housework without help?: Yes Because of any health problems, do you need the help of another person with your personal care needs such as eating, bathing, dressing or getting around the house?: Yes Can you handle your own money without help?: Yes During the past 4 weeks, how would you rate your health in general?: fair During the past 4 weeks how have things been going for you?: good & bad parts about equal Are you having difficulties driving your car?: yes, often Do you always fasten your seat belt when you are in a car?: yes, usually During past 4 weeks, have you been bothered by the following: never: Teeth or denture problems? and Problems using the telephone?, seldom: Falling or dizzy when standing up and Trouble eating well? and always: Sexual problems? and Tiredness or fatigue? Have you fallen 2 or more times in the past year?: Yes Are you afraid of falling?: Yes Are you a smoker?: no During the past 4 weeks, how many drinks of wine, beer, or other alcoholic beverages did you have?: no alcohol at all Do you exercise for about 20 minutes 3 or more times a week?: yes, some of the time Have you been given information to help with the following?: no: Hazards in your house that might hurt you? and no: Keeping track of your medications? How often do you have trouble taking medicines the way you have been told to take them?: I always take medicine as prescribed How confident are you that you can control & manage most of your health problems?: not very confident What is your race?: or origin or descent Mini Mental State Exam (MMSE) Orientation What is the (year) (season) (date) (day) (month)?: year, season, date, day and month Where are we (state) (county) (town or city) (hospital) (floor)?: state, county, town or city, hospital/clinic and floor Registration Name of 3 unrelated objects clearly and slowly, then ask patient to repeat all 3 of them. (1st repeat determines score. Make sure they can repeat all three): object 1, object 2 and object 3 Attention & Calculation (CHOOSE ONE) Spell WORLD backwards (DLROW): 5 letters Recall Ask patient to repeat the 3 items from question #3.: object 1, object 2 and object 3 Language Show patient a wristwatch & ask what it is. Repeat for pencil.: watch and pencil Ask the patient to repeat the phrase 'No ifs, ands, or buts' after you.: correct Ask the patient to 'take a piece of paper with their right hand' 'fold paper in half' 'place paper on floor': take paper in right hand, fold paper in half and place paper on floor Print the sentence 'CLOSE YOUR EYES' on a piece. If patient actually closes eyes then score.: followed written direction Give patient a blank piece of paper & ask to write a sentence. Score if it contains a noun & verb.: sentence contains subject and verb Ask patient to copy figure of intersecting pentagons exactly. Score if all 10 angles & 2 intersects are included.: all 10 angles present & 2 are intersected Score Score: 30 Activity of Daily Living Bathing - sponge bath, tub bath or shower: receives no assistance (gets in/out by self, if usual bathing means Dressing - getting clothes from closets & drawers, including inner/outer garments & fasteners.: gets clothes & gets completely dressed without help Toileting - going to the 'toilet room' for urine/bowel elimination & cleaning self/arranging clothes: goes to toilet room, cleans self, arranges clothes without help Transfer: moves in & out of bed and chair without help (may use support object) Continence: supervision helps urination/bowel control; catheter use; incontinent Feeding: feeds self without help Total Score: 1 Information obtained from: patient Using telephone: independent Traveling: independent Shopping: independent Preparing meals: independent Housework: independent Taking medicine: independent Managing money: independent PHQ-9 Over the last 2 weeks, how often have you been bothered by any of the following problems? 1. Little interest or pleasure in doing things: nearly every day 2. Feeling down, depressed, or hopeless: nearly every day 3. Trouble falling or staying asleep, or sleeping too much: nearly every day 4. Feeling tired or having little energy: nearly every day 5. Poor appetite or overeating: nearly every day 6. Feeling bad about yourself - or that you are a failure or have let yourself or your family down: nearly every day 7. Trouble concentrating on things, such as reading the newspaper or watching television: nearly every day 8. Moving or speaking so slowly that other people could have noticed. Or the opposite - being so fidgety or restless that you have been moving around a lot more than usual: more than half the days 9. 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 Carlos Alberto Llanes, Ada Vidal, Israel Maria and colleagues, with an educational eddie from [employer]. AUDIT C Alcohol Use Questionnaire (AUDIT-C) 1. How often do you have a drink containing alcohol?: Never Total Score: 0 Thrive Questionnaire Date Thrive assessed: 04/28/23 I am a: Patient What is your living situation today?: I have a steady place to live Within the past 12 months, did the food you bought not last and you didn't have the money to get more?: Never true Within the past 12 months, did you worry whether your food would run out before you got money to buy more?: Never true Do you have trouble paying for medicines?: No Do you have trouble getting transportation to medical appointments?: No Do you have trouble paying your heating and electricity bill?: No Do you have trouble taking care of your child, family member or friend?: No Do you have trouble with day-to-day activities such as bathing, preparing meals, shopping, managing finances, etc.?: No Are you currently unemployed and looking for a job?: No Are you interested in more education?: No Please select the resources that you would like help with: None Currently or been in a relationship where the following occur: no concerns reported THRIVE Score: 0 ANGELITA-7 AMB Questionnaire ANGELITA-7 Date ANGELITA - 7 assessed: 04/28/23 Feeling nervous, anxious, or on edge: 2 = More than half the days Not being able to stop or control worryin = Several days Worrying too much about different things: 2 = More than half the days Trouble relaxin = Several days Being so restless that it is hard to sit still: 2 = More than half the days Becoming easily annoyed or irritable: 0 = Not at all Feeling afraid as if something awful might happen: 2 = More than half the days Total ANGELITA-7 score (0-4 normal; 5-9 mild; 10-14 moderate; 15-21 severe): 10 Source: Developed by Drs. Carlos Alberto Llanes, Ada Vidal, Israel Maria and colleagues, with an educational eddie from [employer]. ANGELITA-7 Assessment Billing ANGELITA-7 Assessment Tool: ANGELITA-7 Assessment 48998 Review of Systems Const All systems reviewed & are unremarkable except as noted in HPI and below Eyes Reports no additional complaints, Denies change in vision and Denies other visual disturbances Card Denies chest pain at rest, Denies chest pain with activity, Denies edema, Denies irregular heart rhythm, Denies claudication, Denies dyspnea, Denies dyspnea on exertion, Denies orthopnea, Denies paroxysmal nocturnal dyspnea and Denies slow heart rate Resp Denies cough, Denies dyspnea and Denies dyspnea on exertion GI Denies abdominal pain, Denies change in bowel habits, Denies excessive flatus, Denies nausea and Denies vomiting Denies urinary incontinence, Denies urinary hesitancy and Denies urinary urgency Musc Denies atrophy, Denies deformity and Denies limited range of motion Physical Exam Vital Signs: Last Vital Signs BP 118/76 04/28/23 15:55 BMI result Body Mass Index 22.5 Const Limitations: ambulation with cane Resp Auscultation: clear to auscultation bilaterally Cardio Heart sounds: S1 normal heart sound present and S2 normal heart sound present Neuro Romberg Test: Negative Psych Appearance: grossly normal Assessment & Plan Assessment & Plan (1) Encounter for Medicare annual wellness exam: Code(s): Z00.00 - Encounter for general adult medical examination without abnormal findings Plan: Repeat in a year. (2) Severe major depression without psychotic features: Code(s): F32.2 - Major depressive disorder, single episode, severe without psychotic features Plan: Follow-up with psychiatry. Orders: Orders Lipid Panel Today E78.5 - Hyperlipidemia, unspecified Vitamin D 25-OH Total Today E55.9 - Vitamin D deficiency, unspecified XR DEXA axial skeleton Today N95.9 - Unspecified menopausal and perimenopausal disorder Comprehensive [place]. Panel Fast Today M54.50 - Low back pain, unspecified Quality Reporting (2019) Depression/Bipolar (159/160/161/177) PHQ-9: Total score: 23 Coding Level of Care Code Medicare First (G0438) Diagnoses Encounter for Medicare annual wellness exam Z00.00 Severe major depression without psychotic features F32.2 Additional Codes ANGELITA-7 Assessment Billing - ANGELITA-7 Assessment Tool: ANGELITA-7 Assessment 88192 ([id number]) Time Spent (min) 40
[2023-04-28 15:55] VITALS: BP 118/76; BMI 22.5
== END 2023-04-28 17:15 | disposition home or self-care (01) ==
PROVIDERS: PCP Internal Medicine; Visit Provider Internal Medicine
DX: Z00.00 Encounter for general adult medical examination without abnormal findings (principal); F32.2 Major depressive disorder, single episode, severe without psychotic features
CPT/HCPCS: G0438; G0439

== ENCOUNTER 2023-05-19 14:09 | Outpatient (REF) | payer MEDICARE, MEDICAID, SELFPAY ==
--- NOTE | ~2023-05-19 | MM_ITS ---
EXAMINATION: BONE DENSITOMETRY CLINICAL INDICATION: Unspecified menopausal and perimenopausal disorder. COMPARISON: Baseline BD dated 01/31/2015. TECHNIQUE: Using a [employer] DXA System (software version: 13.1) manufactured by [employer], dual-energy x-ray absorptiometry was performed of the lumbar spine and left hip. The images are of good technical quality. Summary results are attached. FINDINGS: LEFT FEMUR, NECK: Current: BMD 0.966 g/cm2, Z-score 1.0, T-score -0.5, normal. Baseline: BMD 1.012 g/cm2. LEFT FEMUR, TOTAL: Current: BMD 0.945 g/cm2, Z-score 0.8, T-score -0.5, normal, 5.1% decrease from baseline (<5% change is not significant). Baseline: BMD 0.996 g/cm2. AP SPINE L1-L4: Current: BMD 1.285 g/cm2, Z-score 2.6, T-score 0.9, normal, 0.5% increase from baseline (<5% change is not significant). Baseline: BMD 1.279 g/cm2. IDENTIFIED RISK FACTORS: Hysterectomy, menopause, right ovariectomy. HISTORY OF FRACTURE: None listed. MEDICATIONS: Calcium, multivitamin, vitamin D. MM/XR DEXA axial skeleton IMPRESSION: 1. DIAGNOSIS: Normal bone density based on the lowest T-score value of -0.5 in the femoral neck and total femur applying World Health Organization criteria. 2. 10-YEAR FRACTURE RISK PREDICTION, FRAX: According to the guidelines, FRAX calculation should only be performed on patients in the osteopenia bone density category. Therefore, FRAX was not performed on this patient.? 3. Treatment Recommendations: NOF guidelines recommend consideration for treatment in postmenopausal women and men age 50 and older presenting with the following: -A hip or vertebral (clinical or morphometric) fracture. -T-score less than or equal to -2.5 at the femoral neck or spine after appropriate evaluation to exclude secondary causes. -Low bone mass at the hip or spine and a 10-year fracture probability by FRAX of greater than or equal to 3% for hip fracture or greater than or equal to 20% for major osteoporotic fracture based on the [place] adapted WHO algorithm. 4. Other Recommendations: All treatment decisions require clinical judgment and consideration of individual patient factors, including patient preferences, comorbidities, previous drug use, risk factors not captured in the FRAX model (e.g. frailty, falls, vitamin D deficiency, increased bone turnover, interval significant decline in bone density) and possible under or overestimation of fracture risk by FRAX. FUTURE SCAN RECOMMENDATION: People with diagnosed cases of osteoporosis or at high risk for fracture should have regular bone mineral density tests. For patients eligible for Medicare, routine testing is allowed once every 2 years. The testing frequency can be increased to one year for patients who have rapidly progressing disease, those who are receiving or discontinuing medical therapy to restore bone mass, or have additional risk factors.
== END 2023-05-19 14:10 | disposition home or self-care (01) ==
LOC: HO.MAMMO 14:09
PROVIDERS: PCP Internal Medicine; Visit Provider Internal Medicine
DX: Z13.820 Encounter for screening for osteoporosis (principal); Z78.0 Asymptomatic menopausal state
CPT/HCPCS: 77080

== ENCOUNTER 2023-05-21 16:54 | Outpatient (REF) | payer MEDICARE, MEDICAID, SELFPAY ==
--- NOTE | ~2023-05-21 | MR_ITS ---
EXAMINATION: MR ABDOMEN WITHOUT AND WITH CONTRAST CLINICAL INFORMATION: Right upper quadrant pain. COMPARISON: Abdominal ultrasound 03/24/2023 TECHNIQUE: MR abdomen was performed without and with use of 6 mL intravenous Gadavist gadolinium contrast. Postcontrast images are performed in multiphase dynamic sequences. Imaging was performed in 3 planes. FINDINGS: LUNG BASES: No pleural or pericardial effusion. LIVER, GALLBLADDER, AND BILIARY TREE: The liver is normal in size and contour. No focal hepatic lesion or biliary ductal dilatation is present. The gallbladder is unremarkable with no evidence of gallbladder wall thickening, or obvious pericholecystic inflammatory changes. PANCREAS: No ductal dilatation. SPLEEN: Unremarkable. ADRENAL GLANDS: Unremarkable. KIDNEYS AND URETERS: Symmetric in size and enhancement. No hydronephrosis. No perinephric stranding. GASTROINTESTINAL TRACT: No bowel obstruction. No ascites or fluid collection. LYMPH NODES: No bulky lymphadenopathy. VASCULAR: Normal caliber abdominal aorta. MR/MR abdomen wo/w con IMPRESSION: No suspicious hepatic lesion. No correlate to the recent ultrasound. Follow-up imaging may be performed as clinically indicated.
[2023-05-21] MEDS: gadobutroL 7.5 ML VIAL IVPUSH (17:53)
== END 2023-05-21 16:55 | disposition home or self-care (01) ==
LOC: HO.MRI 16:54
PROVIDERS: PCP Internal Medicine; Visit Provider Internal Medicine
DX: K76.9 Liver disease, unspecified (principal)
CPT/HCPCS: 74183; A9585

== ENCOUNTER 2023-06-09 13:34 | Outpatient (AMB) | payer MEDICARE, MEDICAID, SELFPAY ==
[2023-06-09 13:36] VITALS: BP 110/70; BMI 22.5
--- NOTE | 2023-06-09 13:36 | A.OFFPC_ITS ---
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: No Accompanied by: Spouse Allergies statins Adverse Reaction (Intermediate, Uncoded 06/09/23 13:49) elevated liver enzymes Medication List - Last Reconciled 06/09/23 by Janny Burnett MD albuterol sulfate 90 mcg/actuation 2 puffs PO Q4H PRN alprazolam 1 mg PO TID PRN cane As directed cetirizine 10 mg PO BEDTIME citalopram 40 mg PO DAILY colesevelam 1,875 mg (3 x 625 mg) PO BID desvenlafaxine succinate ER 50 mg PO DAILY epinephrine 0.3 mg IM ONCE PRN estradiol 1 patch transdermal QWEEK fluticasone propion-salmeterol 250-50 mcg/dose 1 ea inhalation BID fluticasone propionate 50 mcg/actuation 1 spray intranasal DAILY gabapentin 800 mg PO BID hydroxyzine HCl [id number] mg PO TID PRN Magic Mouthwash Diphen/Lido/Antacid 1:1:1 10 mL PO TID montelukast 10 mg PO DAILY nabumetone 500 mg PO BID omalizumab mg subcut oxybutynin chloride ER 30 mg PO DAILY pantoprazole 40 mg PO DAILY quetiapine ER 400 mg PO BEDTIME rosuvastatin 10 mg PO DAILY 90 days simethicone (Gas Relief (simethicone)) 180 mg PO BID PRN 30 days sumatriptan succinate 50 mg PO Q2-4H PRN 30 days tramadol 50 mg PO Q6H PRN Tobacco use date assessed: 06/09/23 Dental Screening Dental Screen Date: 06/09/23 Did you have a dental visit in the last 12 months?: Yes Did you have a dental problem in the last 6 months where you did not have access to dental care?: No Was dental information given to patient?: Patient has dentist HPI HPI Comments History of Present Illness Details This is a 62-year-old female with moderate major depression, dyslipidemia, severe asthma and GERD that comes today accompanied by for follow-up on her conditions. Depression has been stable with citalopram and follow by Psychiatry. On statins for her elevated cholesterol with no side effects. Has severe asthma that has markedly improved with long-acting inhaler and Xolair. Asthma is follow by pulmonology. GERD stable with PPIs. Currently in a wheelchair due to recent left foot surgery that is healing well. No chest pain or shortness of breath. MRI of the abdomen was discussed. [facility] Medical History (Updated 06/10/23 @ 07:40 by Janny Burnett MD) Severe major depression without psychotic features Urge urinary incontinence Weight loss Abdominal pain GERD (gastroesophageal reflux disease) Fibromyalgia Severe asthma Migraines Dyslipidemia Surgical History History of total abdominal hysterectomy History of tubal ligation Family History Father Diabetes Mother Diabetes Hypertension Maternal Grandmother Diabetes Maternal Grandfather Diabetes Son In good health Brother In good health Sister In good health Family/Other Mental health disorder Social History Housing: Apartment Alcohol intake: former Patient Tobacco Use Status: Former Tobacco user Quit Date: 2-3 years ago Tobacco use type: Cigarette e-Cigarette/Vaping Use: Never Used Second Hand Smoke Exposure: No service: No Current occupational status: unemployed Cognitive needs: Yes (cane) Hearing needs: No Vision needs: No Questionnaire Thrive Questionnaire Date Thrive assessed: 04/28/23 ANGELITA-7 AMB Questionnaire ANGELITA-7 Date ANGELITA - 7 assessed: 04/28/23 Source: Developed by Drs. Carlos Alberto Llanes, Ada Vidal, Israel Maria and colleagues, with an educational eddie from [employer]. Review of Systems Const All systems reviewed & are unremarkable except as noted in HPI and below Eyes Reports no additional complaints, Denies change in vision and Denies other visual disturbances Card Denies chest pain at rest, Denies chest pain with activity, Denies edema, Denies irregular heart rhythm, Denies claudication, Denies dyspnea, Denies dyspnea on exertion, Denies orthopnea, Denies paroxysmal nocturnal dyspnea and Denies slow heart rate Resp Denies cough, Denies dyspnea and Denies dyspnea on exertion GI Denies abdominal pain, Denies change in bowel habits, Denies excessive flatus, Denies nausea and Denies vomiting Physical exam (Primary Care) Vital Signs: Last Vital Signs BP 110/70 06/09/23 13:36 BMI result Body Mass Index 22.5 Tobacco/Smoking Status: Tobacco use Status Tobacco use date assessed 06/09/23 06/09/23 13:39 Patient Tobacco Use Status Former Tobacco user 06/09/23 13:39 Tobacco use type Cigarette 06/09/23 13:39 e-Cigarette/Vaping Use Never Used 06/09/23 13:39 Thrive Assessment: Date of Thrive Assessment Date Thrive assessed 04/28/23 06/09/23 13:39 Const Limitations: wheelchair Resp Effort & Inspection: normal respiratory effort Auscultation: clear to auscultation bilaterally Cardio Jugular venous distension: no JVD Rate: regular rate Rhythm: regular rhythm Heart sounds: S1 normal heart sound present and S2 normal heart sound present Psych Appearance: grossly normal Assessment and Plan Assessment & Plan (1) Moderate major depression: Code(s): F32.1 - Major depressive disorder, single episode, moderate Plan: Continue citalopram. Follow-up with psychiatry. (2) GERD (gastroesophageal reflux disease): Code(s): K21.9 - Gastro-esophageal reflux disease without esophagitis Plan: Continue PPIs. (3) Severe asthma: Code(s): J45.909 - Unspecified asthma, uncomplicated Plan: Continue long-acting inhaler. Use rescue inhaler as needed. Continue Xolair. Follow-up with pulmonology. (4) Dyslipidemia: Code(s): E78.5 - Hyperlipidemia, unspecified Plan: Continue statins. Repeat lipid panel. Coding Level of Care Code Est Pt Level 4 (66761) Diagnoses Moderate major depression F32.1 GERD (gastroesophageal reflux disease) K21.9 Severe asthma J45.909 Dyslipidemia E78.5 Time Spent (min) 21
== END 2023-06-09 14:02 | disposition home or self-care (01) ==
PROVIDERS: PCP Internal Medicine; Visit Provider Internal Medicine
DX: F32.1 Major depressive disorder, single episode, moderate (principal); K21.9 Gastro-esophageal reflux disease without esophagitis; J45.909 Unspecified asthma, uncomplicated; E78.5 Hyperlipidemia, unspecified
CPT/HCPCS: 99214

== ENCOUNTER 2023-12-03 12:51 | Outpatient (REF) | payer MEDICARE, MEDICAID, SELFPAY ==
[2023-12-03 14:23] LABS: Alanine Aminotransferase 34 U/L (0-31); Albumin Level 4.3 g/dL (3.5-5.0); Alkaline Phosphatase 87 U/L (39-117); Anion Gap 13 (12-20); Aspartate Amino Transferase 21 U/L (5-31); Bilirubin Total 0.9 mg/dL (0.0-1.0); Blood Urea Nitrogen 20 mg/dL (9-16); Calcium 9.4 mg/dL (8.4-10.2); Carbon Dioxide 28 mmol/L (22-29); Chloride 107 mmol/L (96-108); Cholesterol 224 mg/dL (<200); Estimated Glomerular Filt Rate > 60; Glucose Fasting 94 mg/dL (60-99); HDL Cholesterol 66 mg/dL (>40); LDL Cholesterol Calculated 140 mg/dL (<100); Potassium 4.2 mmol/L (3.3-5.1); Sodium 144 mmol/L (135-145); Triglycerides 91 mg/dL (<150)
== END 2023-12-03 12:52 | disposition home or self-care (01) ==
LOC: HO.LAB 12:51
PROVIDERS: PCP Internal Medicine; Visit Provider Internal Medicine
DX: M54.50 Low back pain, unspecified (principal); E55.9 Vitamin D deficiency, unspecified; E78.5 Hyperlipidemia, unspecified
CPT/HCPCS: 36415; 80053; 80061; 82306

== ENCOUNTER 2023-12-09 14:19 | Outpatient (AMB) | payer MEDICARE, MEDICAID, SELFPAY ==
[2023-12-09 14:43] VITALS: BP 120/78; BMI 23.9
--- NOTE | 2023-12-09 14:43 | MHC.PC.OV ---
Vital Signs 12/09/23 14:43 Height 5 ft 3 in Weight 135 lb BMI 23.9 BP 120/78 Blood Pressure Location Lt brachial Position Sitting Intake Visit Reasons: depression Intake Note: Patient here for a follow up Depression Loan Interviewer Required: No Accompanied by: Self / Same As Patient Allergies statins Adverse Reaction (Intermediate, Uncoded 12/09/23 15:04) elevated liver enzymes Medication List - Last Reconciled 12/09/23 by Janny Burnett MD alprazolam 1 mg PO TID PRN cane As directed cetirizine 10 mg PO BEDTIME citalopram 40 mg PO DAILY colesevelam 1,875 mg (3 x 625 mg) PO BID desvenlafaxine succinate ER 50 mg PO DAILY epinephrine 0.3 mg IM ONCE PRN estradiol 1 patch transdermal QWEEK fluticasone propion-salmeterol 250-50 mcg/dose 1 ea inhalation BID 30 days fluticasone propionate 50 mcg/actuation 1 spray intranasal DAILY gabapentin 800 mg PO BID hydroxyzine HCl 2396b08 mg PO TID PRN Magic Mouthwash Diphen/Lido/Antacid 1:1:1 10 mL PO TID montelukast 10 mg PO DAILY nabumetone 500 mg PO BID omalizumab mg subcut oxybutynin chloride ER 30 mg PO DAILY pantoprazole 40 mg PO DAILY quetiapine ER 400 mg PO BEDTIME rosuvastatin 10 mg PO DAILY 90 days simethicone (Gas Relief (simethicone)) 180 mg PO BID PRN 30 days sumatriptan succinate 50 mg PO Q2-4H PRN 30 days tramadol 50 mg PO Q6H PRN Ventolin HFA 90 mcg/actuation (albuterol sulfate) 2 puffs inhalation Q6H PRN 30 days NS Tobacco use date assessed: 06/09/23 Fall risk assessment: No Falls in past year Last assessed Fall Risk: 12/09/23 Dental Screening Dental Screen Date: 06/09/23 HPI HPI Comments History of Present Illness Details This is a 63-year-old female with moderate major depression, GERD, fibromyalgia, severe asthma and dyslipidemia that comes today for follow-up on her conditions. Depression stable with citalopram. GERD well controlled with PPIs. On gabapentin for her fibromyalgia but still has some diffuse joint pain and weakness. On long-acting inhaler for her asthma and follow by pulmonology. Cholesterol is elevated and rosuvastatin will be increased. No chest pain or shortness on breath. [facility] Medical History (Updated 12/10/23 @ 10:45 by Janny Burnett MD) Severe major depression without psychotic features Urge urinary incontinence Weight loss Abdominal pain GERD (gastroesophageal reflux disease) Fibromyalgia Severe asthma Migraines Dyslipidemia Surgical History History of total abdominal hysterectomy History of tubal ligation Family History Father Diabetes Mother Diabetes Hypertension Maternal Grandmother Diabetes Maternal Grandfather Diabetes Son In good health Brother In good health Sister In good health Family/Other Mental health disorder Social History Housing: Apartment Alcohol intake: former Patient Tobacco Use Status: Former Tobacco user Tobacco use type: Cigarette e-Cigarette/Vaping Use: Never Used Second Hand Smoke Exposure: No service: No Current occupational status: unemployed Cognitive needs: Yes (cane) Hearing needs: No Vision needs: No Questionnaire Thrive Questionnaire Date Thrive assessed: 04/28/23 ANGELITA-7 AMB Questionnaire ANGELITA-7 Date ANGELITA - 7 assessed: 04/28/23 Source: Developed by Drs. Carlos Alberto Llanes, Ada Vidal, Israel Maria and colleagues, with an educational eddie from [employer]. Review of Systems Const All systems reviewed & are unremarkable except as noted in HPI and below Card Denies chest pain at rest, Denies chest pain with activity, Denies edema, Denies irregular heart rhythm, Denies claudication, Denies dyspnea, Denies dyspnea on exertion, Denies orthopnea, Denies paroxysmal nocturnal dyspnea and Denies slow heart rate Resp Denies cough, Denies dyspnea and Denies dyspnea on exertion GI Denies abdominal pain, Denies change in bowel habits, Denies excessive flatus, Denies nausea and Denies vomiting Physical exam (Primary Care) Vital Signs: Last Vital Signs BP 120/78 12/09/23 14:43 BMI result Body Mass Index 23.9 Tobacco/Smoking Status: Tobacco use Status Tobacco use date assessed 06/09/23 12/09/23 14:48 Patient Tobacco Use Status Former Tobacco user 12/09/23 14:48 Tobacco use type Cigarette 12/09/23 14:48 e-Cigarette/Vaping Use Never Used 12/09/23 14:48 Thrive Assessment: Date of Thrive Assessment Date Thrive assessed 04/28/23 12/09/23 14:48 Resp Effort & Inspection: normal respiratory effort Auscultation: clear to auscultation bilaterally Cardio Jugular venous distension: no JVD Rate: regular rate Rhythm: regular rhythm Heart sounds: S1 normal heart sound present and S2 normal heart sound present Extrem General: Yes full ROM Coding Level of Care Code Est Pt Level 4 (17038) Complex EM visit Add On G2211 Diagnoses Moderate major depression F32.1 Gastroesophageal reflux disease, unspecified whether esophagitis present K21.9 Esophagitis presence: esophagitis presence not specified Dyslipidemia E78.5 Severe persistent asthma without complication J45.50 Asthma complication type: uncomplicated Asthma persistence: persistent Fibromyalgia M79.7 Time Spent (min) 21 Assessment & Plan Assessment & Plan (1) Moderate major depression: Code(s): F32.1 - Major depressive disorder, single episode, moderate Category: Medical Plan: Continue citalopram. (2) GERD (gastroesophageal reflux disease): Code(s): K21.9 - Gastro-esophageal reflux disease without esophagitis Category: Medical Qualifiers: Esophagitis presence: esophagitis presence not specified Qualified Code(s): K21.9 - Gastro-esophageal reflux disease without esophagitis Plan: Continue PPIs. (3) Dyslipidemia: Code(s): E78.5 - Hyperlipidemia, unspecified Category: Medical Plan: Increase rosuvastatin from 10 mg to 20 mg. (4) Severe asthma: Code(s): J45.909 - Unspecified asthma, uncomplicated Category: Medical Qualifiers: Asthma complication type: uncomplicated Asthma persistence: persistent Qualified Code(s): J45.50 - Severe persistent asthma, uncomplicated Plan: Continue long-acting inhaler. (5) Fibromyalgia: Code(s): M79.7 - Fibromyalgia Category: Medical Plan: Continue gabapentin. Orders: Orders Lipid Panel 4 Months E78.5 - Hyperlipidemia, unspecified Comprehensive [place]. Panel Fast 4 Months K76.9 - Liver disease, unspecified Referrals PROCESS ASSISTANT Referral Z01.419 - Encounter for gynecological examination (general) (routine) without abnormal findings Medications: New rosuvastatin 20 mg PO DAILY 90 tabs 1RF 90 days Discontinued rosuvastatin Discontinued Reason: Patient Completed Course 10 mg PO DAILY 90 days 90 tabs 3RF
== END 2023-12-09 15:19 | disposition home or self-care (01) ==
PROVIDERS: PCP Internal Medicine; Visit Provider Internal Medicine
DX: F32.1 Major depressive disorder, single episode, moderate (principal); K21.9 Gastro-esophageal reflux disease without esophagitis; E78.5 Hyperlipidemia, unspecified; J45.50 Severe persistent asthma, uncomplicated; M79.7 Fibromyalgia

== ENCOUNTER → 2023-12-09 14:19 | Outpatient (BNVA) | payer MEDICARE, MEDICAID, SELFPAY | PROVIDERS: PCP Internal Medicine; Visit Provider Internal Medicine | DX: F32.1 Major depressive disorder, single episode, moderate (principal); K21.9 Gastro-esophageal reflux disease without esophagitis; E78.5 Hyperlipidemia, unspecified; J45.50 Severe persistent asthma, uncomplicated; M79.7 Fibromyalgia | CPT/HCPCS: 99212 ==

== ENCOUNTER 2024-04-17 15:38 | Outpatient (AMB) | payer MEDICARE, MEDICAID, SELFPAY ==
--- NOTE | 2024-04-17 15:40 | A.OFFPC_ITS ---
Vital Signs 04/17/24 15:43 Height 5 ft 3 in BMI Reason not done Patient refused/unable BP 120/80 Blood Pressure Location Lt brachial Position Sitting Intake Visit Reasons: 3 month f/u Intake Note: Patient here for a 3 month follow up Pottery Striper Required: Yes Pottery Striper Language: Manager Digital Ad Operations Name: Janny Burnett< Information Interpreted: non-clinical & clinical Accompanied by: Spouse Allergies statins Adverse Reaction (Intermediate, Uncoded 04/17/24 15:54) elevated liver enzymes Medication List - Last Reconciled 04/17/24 by Janny Burnett MD alprazolam 1 mg PO TID PRN cane As directed cetirizine 10 mg PO BEDTIME citalopram 40 mg PO DAILY colesevelam 1,875 mg (3 x 625 mg) PO BID desvenlafaxine succinate ER 50 mg PO DAILY epinephrine 0.3 mg IM ONCE PRN estradiol 1 patch transdermal QWEEK fluticasone propion-salmeterol 250-50 mcg/dose 1 ea inhalation BID 30 days fluticasone propionate 50 mcg/actuation 1 spray intranasal DAILY gabapentin 800 mg PO BID hydroxyzine HCl 3673k48 mg PO TID PRN Magic Mouthwash Diphen/Lido/Antacid 1:1:1 10 mL PO TID montelukast 10 mg PO DAILY nabumetone 500 mg PO BID omalizumab mg subcut oxybutynin chloride ER 30 mg PO DAILY pantoprazole 40 mg PO DAILY quetiapine ER 400 mg PO BEDTIME rosuvastatin 20 mg PO DAILY 90 days simethicone (Gas Relief (simethicone)) 180 mg PO BID PRN 30 days sumatriptan succinate 50 mg PO Q2-4H PRN 30 days tramadol 50 mg PO Q6H PRN Ventolin HFA 90 mcg/actuation (albuterol sulfate) 2 puffs inhalation Q6H PRN 30 days NS Tobacco use date assessed: 04/17/24 Fall risk assessment: 2 + Falls in past year Last assessed Fall Risk: 04/17/24 Dental Screening Dental Screen Date: 04/17/24 Did you have a dental visit in the last 12 months?: No Did you have a dental problem in the last 6 months where you did not have access to dental care?: No Was dental information given to patient?: Patient has dentist HPI HPI Comments History of Present Illness Details The patient is a 63-year-old female presenting with a right ankle frac ture sustained from a fall on March 30 while visiting [place]. She slipped on a ramp, suffering an inversion injury that caused immediate severe pain and was confirmed by a crack sound. Initial care in [place] included imaging, recommending surgical intervention, which the patient deferred in favor of consulting her surgeon for stabilization at home. She is scheduled for surgery in two days. Additionally, the patient manages several chronic conditions, including asthma, with a daily inhaler regimen, and migraine headaches, which cause intense unilateral facial pain affecting her eye. Her psychiatric history includes depression and anxiety, for which she is undergoing treatment, and she has a longstanding diagnosis of hyperlipidemia. She is allergic to statins and is consequently on a specified medication plan. The patient mentions prior psychiatric consultation and ongoing management with multiple medications for her chronic conditions. [facility] Medical History (Updated 04/17/24 @ 16:12 by Janny Burnett MD) Severe major depression without psychotic features Urge urinary incontinence Weight loss Abdominal pain GERD (gastroesophageal reflux disease) Fibromyalgia Severe asthma Migraines Dyslipidemia Surgical History History of total abdominal hysterectomy History of tubal ligation Family History Father Diabetes Mother Diabetes Hypertension Maternal Grandmother Diabetes Maternal Grandfather Diabetes Son In good health Brother In good health Sister In good health Family/Other Mental health disorder Social History Housing: Apartment Alcohol intake: former Patient Tobacco Use Status: Former Tobacco user Tobacco use type: Cigarette e-Cigarette/Vaping Use: Never Used Second Hand Smoke Exposure: No service: No Current occupational status: unemployed Cognitive needs: Yes (cane) Hearing needs: No Vision needs: Yes Questionnaire PHQ-9 Over the last 2 weeks, how often have you been bothered by any of the following problems? 1. Little interest or pleasure in doing things: nearly every day 2. Feeling down, depressed, or hopeless: nearly every day 3. Trouble falling or staying asleep, or sleeping too much: nearly every day 4. Feeling tired or having little energy: several days 5. Poor appetite or overeating: not at all 6. Feeling bad about yourself - or that you are a failure or have let yourself or your family down: several days 7. Trouble concentrating on things, such as reading the newspaper or watching television: several days 8. Moving or speaking so slowly that other people could have noticed. Or the opposite - being so fidgety or restless that you have been moving around a lot more than usual: not at all 9. Thoughts that you would be better off or of hurting yourself in some way : not at all Total score: 12 Depression Screening Interpretation: Positive Depression Screening Follow-up: Existing condition, In treatment, Community Mental Health Worker F/U and Follow- up Visit Requested Depression Screening Done: Yes 56429 - PHQ-9 Billing: Yes Source: Developed by Drs. Carlos Alberto Llanes, Ada Vidal, Israel Maria and colleagues, with an educational eddie from [employer]. Thrive Questionnaire Date Thrive assessed: 04/17/24 I am a: Patient What is your living situation today?: I have a steady place to live Within the past 12 months, did the food you bought not last and you didn't have the money to get more?: Never true Within the past 12 months, did you worry whether your food would run out before you got money to buy more?: Never true Do you have trouble paying for medicines?: No Do you have trouble getting transportation to medical appointments?: No Do you have trouble paying your heating and electricity bill?: No Do you have trouble taking care of your child, family member or friend?: No Do you have trouble with day-to-day activities such as bathing, preparing meals, shopping, managing finances, etc.?: No Are you currently unemployed and looking for a job?: No Are you interested in more education?: No Please select the resources that you would like help with: None Currently or been in a relationship where the following occur: No concerns reported THRIVE Score: 0 AUDIT C Alcohol Use Questionnaire (AUDIT-C) 1. How often do you have a drink containing alcohol?: Never Total Score: 0 Score Reviewed/Action Taken: No ANGELITA-7 AMB Questionnaire ANGELITA-7 Date ANGELITA - 7 assessed: 04/17/24 Feeling nervous, anxious, or on edge: 3 = Nearly every day Not being able to stop or control worryin = Several days Worrying too much about different things: 3 = Nearly every day Trouble relaxin = Several days Being so restless that it is hard to sit still: 0 = Not at all Becoming easily annoyed or irritable: 2 = More than half the days Feeling afraid as if something awful might happen: 1 = Several days Total ANGELITA-7 score (0-4 normal; 5-9 mild; 10-14 moderate; 15-21 severe): 11 Source: Developed by Drs. Carlos Alberto Llanes, Ada Vidal, Israel Maria and colleagues, with an educational eddie from [employer]. ANGELITA-7 Assessment Billing ANGELITA-7 Assessment Tool: ANGELITA-7 Assessment 38977 Review of Systems Const All systems reviewed & are unremarkable except as noted in HPI and below Card Denies chest pain at rest, Denies chest pain with activity, Denies edema, Denies irregular heart rhythm, Denies claudication, Denies dyspnea, Denies dyspnea on exertion, Denies orthopnea, Denies paroxysmal nocturnal dyspnea and Denies slow heart rate Resp Denies cough, Denies dyspnea and Denies dyspnea on exertion GI Denies abdominal pain, Denies change in bowel habits, Denies excessive flatus, Denies nausea and Denies vomiting Denies urinary incontinence, Denies urinary hesitancy and Denies urinary urgency Musc Denies atrophy, Denies deformity, Reports arthralgias and Denies limited range of motion Skin/Breast Denies bleeding lesions, Denies changing lesions and Denies rash Physical exam (Primary Care) Vital Signs: Last Vital Signs BP 120/80 04/17/24 15:43 Tobacco/Smoking Status: Tobacco use Status Tobacco use date assessed 04/17/24 04/17/24 15:43 Patient Tobacco Use Status Former Tobacco user 04/17/24 15:43 Tobacco use type Cigarette 04/17/24 15:43 e-Cigarette/Vaping Use Never Used 04/17/24 15:43 PHQ-9: PHQ-9 Score PHQ-9: Total score 4 04/17/24 15:43 Depression Screening Interpretation: Positive Depression Screening Follow-up: Existing condition, In treatment, Community Mental Health Worker F/U and Follow- up Visit Requested Thrive Assessment: Date of Thrive Assessment Date Thrive assessed 04/17/24 04/17/24 15:43 Currently or been in a relationship where the following occur: No concerns reported Const Limitations: wheelchair Resp Effort & Inspection: normal respiratory effort Auscultation: clear to auscultation bilaterally Cardio Jugular venous distension: no JVD Rate: regular rate Rhythm: regular rhythm Heart sounds: S1 normal heart sound present and S2 normal heart sound present Extrem Other: right leg bandage Coding Level of Care Code Est Pt Level 4 (78925) Complex EM visit Add On G2211 Diagnoses Moderate major depression F32.1 Closed fracture of right ankle, initial encounter S82.891A Encounter type: initial encounter Gastroesophageal reflux disease, unspecified whether esophagitis present K21.9 Esophagitis presence: esophagitis presence not specified Severe persistent asthma without complication J45.50 Asthma persistence: persistent Asthma complication type: uncomplicated Migraine without status migrainosus, not intractable, unspecified migraine type G43.909 Migraine type: unspecified Status migrainosus presence: without status migrainosus Intractability: not intractable Dyslipidemia E78.5 Additional Codes PHQ-9 - 67308 - PHQ-9 Billing: Yes ([id number]) ANGELITA-7 Assessment Billing - ANGELITA-7 Assessment Tool: ANGELITA-7 Assessment 07480 ([id number]) Time Spent (min) 21 Assessment & Plan Assessment & Plan (1) Moderate major depression: Code(s): F32.1 - Major depressive disorder, single episode, moderate Category: Medical (2) Closed right ankle fracture: Code(s): S82.891A - Other fracture of right lower leg, initial encounter for closed fracture Category: Medical Qualifiers: Encounter type: initial encounter Qualified Code(s): S82.891A - Other fracture of right lower leg, initial encounter for closed fracture (3) GERD (gastroesophageal reflux disease): Code(s): K21.9 - Gastro-esophageal reflux disease without esophagitis Category: Medical Qualifiers: Esophagitis presence: esophagitis presence not specified Qualified Code(s): K21.9 - Gastro-esophageal reflux disease without esophagitis (4) Severe asthma: Code(s): J45.909 - Unspecified asthma, uncomplicated Category: Medical Qualifiers: Asthma persistence: persistent Asthma complication type: uncomplicated Qualified Code(s): J45.50 - Severe persistent asthma, uncomplicated (5) Migraines: Code(s): G43.909 - Migraine, unspecified, not intractable, without status migrainosus Category: Medical Qualifiers: Migraine type: unspecified Status migrainosus presence: without status migrainosus Intractability: not intractable Qualified Code(s): G43.909 - Migraine, unspecified, not intractable, without status migrainosus (6) Dyslipidemia: Code(s): E78.5 - Hyperlipidemia, unspecified Category: Medical Plan The plan is to proceed with the scheduled surgery for the right ankle injury, ensuring adequate pain management while avoiding mixing certain pain medications. Maintenance of her current regimen for migraine headaches and asthma is advised, using sumatriptan and daily inhalers, respectively. Psychiatric management continues with the established medication plan, observing her statin allergy. Follow-up for hyperlipidemia will be addressed post-recovery and additional appointments, including re-evaluation of cholesterol levels, will be scheduled as she recovers. Patient was informed and verbally consented to the use of an ambient scribe for clinic note documentation during this visit. I discussed with the patient the severity of her right ankle injury and the necessity of the scheduled surgery. We reviewed her current pain management plan, emphasizing the importance of avoiding certain medication combinations, such as tramadol with oxycodone. The benefits of continuing her current asthma and migraine treatment regimen were addressed, along with adherence to her psychiatric medication due to her history of depression and anxiety. We agreed on revisiting hyperlipidemia management after her recovery. Follow-up scheduling was coordinated to align with her recovery timeline. Orders: Orders Comprehensive [place]. Panel Fast 4 Months E78.5 - Hyperlipidemia, unspecified Lipid Panel 4 Months E78.5 - Hyperlipidemia, unspecified Medications: Changed From epinephrine 0.3 mg IM ONCE PRN To epinephrine 0.3 mg (0.3 mL) IM ONCE 30 days PRN 2 ea 0RF anaphylaxis Refilled Ventolin HFA 90 mcg/actuation (albuterol sulfate) 2 puffs inhalation Q6H 30 days PRN 18 grams 2RF shortness of breath or wheezing NS Patient Instructions: - Proceed with the scheduled right ankle surgery. - Avoid mixing tramadol and oxycodone for pain management. - Continue using asthma inhaler and migraine medication as prescribed. - Maintain psychiatric medication regimen. - Schedule follow-up for cholesterol management post-recovery. - Contact the clinic if experiencing increased pain, swelling, or other concerning symptoms.
[2024-04-17 15:43] VITALS: BP 120/80
--- OUTSIDE RECORDS SUMMARY | 2024-04-17 18:27 | XMS_ITS | Patient Health Record ---
Author Organization [facility] Address [address] [place] [id number] Care Team Providers Care Electric Transfer Operator Name Role Phone Janny Meadows Primary Care Provider Unavailab Brian Coe Jr Unavailable REASON FOR REFERRAL No Information MEDICATIONS Medication SIG (Take, Route, Frequency, Duration) Notes Start Date End Date Status Pantoprazole Sodium 40 MG 1 tablet Orall y Once a day for 30 Active ALPRAZolam Active Gabapentin 800 MG 1 tablet Orally Twic e a day Active Desvenlafaxine Succinate ER Active Citalopram Hydrobromide Active QUEtiapine Fumarate ER Active Omeprazole 20 MG Orally Act viji NexIUM 40 MG 1 capsule Orally Onc e a day for 30 days 02/23/2018 Active Colesevelam HCl 625 MG 3 tablets with me als Orally Twice a day Active Montelukast Sodium 10 MG 1 tablet Orally Once a day Active Cetirizine HCl 10 MG 1 tablet Orally Onc e a day Active Rosuvastatin Calcium 10 MG 1 tablet Oral ly Once a day Active oxyBUTYnin Chloride ER 15 MG 1 tablet Or ally Once a day Active Nabumetone 500 MG 1 tablet Orally Twic e a day Active IMMUNIZATIONS Vaccine Route Administration Date Status Comme nts Influenza Unknown 11/22/2019 Administered SOCIAL HISTORY Tobacco Use: Social History Observation Description Date Details (start date - stop date) Former Smoker NA - NA Sex Assigned At : Social History Observation Description Sex Assigned At Unknown Tobacco Use/Smoking Question Answer Notes Patient is a former smoker How long has it been since you last smoked? > 10 years Alcohol Screen Question Answer Notes Did you have a drink containing alcohol in the p ast year? No Points 0 Interpretation Negative PROBLEMS Problem Type ICD Code Onset Dates Problem Status W/U Status Risk SNOMED Code Notes Problem Colon cancer screening (Z12.11) Active confirmed [id number] Problem Gastroesophageal reflux disease, esophagitis presence not specified (K21.9) Active confirmed 833001201 Problem GERD without esophagitis (K21.9) Active confirmed Gastroes ophageal reflux disease ([id number]) PLAN OF TREATMENT Future Test Test Name Order Date UPPER GI ENDOSCOPY 10/22/2017 COLONOSCOPY 10/22/2017 Insurance Providers Payer Name Payer Address Payer Phone Subscriber Number Group Number Insured Name Patient Relationship to Insured Coverage Start Date Coverage End Date MEDICARE OF [place] [address] [place] [id number] BOB LEMUS Self - patient is the insured MEDICAID OF [facility] [address] [place] [phone] [id number] LEMUSBOB DOMINGO Self - patient is the insured MEDICAL (GENERAL) HISTORY Medical History History ICD Code elevated cholesterol asthma overactive bladder gastroesophageal reflux disease arthritis fatty liver acid reflux Surgical History Surgery Date(Month/Year) partial hysterectomy upper endoscopy 02/23/18, norm al, no Niño's esophagus or H. pylori on biopsy colonoscopy 02/23/18, normal, ten-year fol lowup recommended
--- OUTSIDE RECORDS SUMMARY | 2024-04-17 18:27 | XMS_ITS | Encounter Summary ---
Author Organization [facility] Address [address] [place] [id number] Care Team Providers Care Quantitative Consultant Name Role Phone Unavailable Primary Care Provider Unavailabl e Reason for Referral * Consultation (Routine) - Closed Specialty Diagnoses / Procedures Referred By Hardik huang Referred To Contact Pulmonary Disease Diagnoses Drug-induced asthma Dane Juarez MD Phone: tel: fax: [facility] [address] [place] [address], 2nd floor [facility], [address] [place] [address] Phone: tel: fax: Referral ID Status Reason Start Date Expiration Date V isits Requested Visits Authorized [id number] Closed Specialty Services Required 06/19/2014 06/19/2015 1 1 Encounter Details Date Type Department Care Team (Late st Contact Info) Description 06/19/2014 Transcribed Orders Referral Link Providers [address] [place] [address] System, Provider Not In Cough variant asthma (Primary Dx); Drug-induced asthma Social History Tobacco Use Types Packs/Day Years Used Date Smoking Tobacco: Never Assessed Comments Unknown Sex and Gender Information Value Date Recorded Sex Assigned at Not on file Legal Sex Female 12:36 PM EDT Gender Identity Not on file Sexual Orientation Not on file documented as of this encounter Plan of Treatment Scheduled Referrals Name Type Priority Associated Diagnoses Order Schedule Ambulatory referral to Pulmonology Outpatient Referral Routine Drug-induced asthma Ordered: 06/19/2014 documented as of this encounter Visit Diagnoses Diagnosis Cough variant asthma- Primary Drug-induced asthma documented in this encounter
--- OUTSIDE RECORDS SUMMARY | 2024-04-17 18:27 | XMS_ITS | Clinical Summary ---
Author Organization [place] [address] Address [address] [place] [address] Care Team Providers Care Medical Logistics Specialist Name Role Phone Unavailable Primary Care Provider Unavailabl e Allergies No known active allergies Medications ALBUTEROL SULFATE (VENTOLIN INHL) Inhale into the lungs. As directed Active VENTOLIN HFA 90 mcg/actuation HFAA 1 09/10/2014 Active ALPRAZolam (XANAX) 2 MG tablet 0 09/17/2014 Active busPIRone (BUSPAR) 15 MG tablet 0 05/29/2014 Active ALLERGY RELIEF, CETIRIZINE, 10 mg Tab 0 05/25/2014 Active citalopram (CELEXA) 40 MG tablet 0 05/29/2014 Active PREMARIN 0.625 mg/gram Crea 0 06/25/2014 Active ketotifen (ZADITOR) 0.025 % ophthalmic solution Place 1 drop into both eyes 2 (two) times daily. 0 07/11/2014 Active oxybutynin (DITROPAN XL) 15 MG 24 hr tablet 0 06/25/2014 Active SEROQUEL XR 400 mg Tb24 0 05/29/2014 Active simvastatin (ZOCOR) 20 MG tablet 0 09/11/2014 Active OMALIzumab (XOLAIR) 150 mg injection 08/27/2014 Active FLONASE 50 mcg/actuation SpSn 08/14/2014 Active pantoprazole (PROTONIX) 40 MG tablet 0 11/09/2014 Active SUMAtriptan (IMITREX) 50 MG tablet 1 11/09/2014 Active montelukast (SINGULAIR) 10 mg tabletIndicatio ns:Uncomplicate d severe persistent asthma (HC Code) Take 1 tablet (10 mg total) by mouth nightly. 30 tablet 12 01/21/2016 Active fluticasone-mojgan meterol (ADVAIR HFA) 230-21 mcg/actuation HFAAIndications :Uncomplicated severe persistent asthma (HC Code) Inhale 1 puff into the lungs 2 (two) times daily. 12 g 12 01/21/2016 Active Active Problems Problem Noted Date Diagnosed Date Severe persistent asthma, uncomplicated 03/01/19 16 Gastroesophageal reflux disease without esophagi tis 03/01/2015 Immunizations Name Administration Dates Next Due Influenza, split virus, trivalent, Preservative Free 10/30/2015 Family History Medical History Relation Name Comments Diabetes Father Diabetes Mother High cholesterol Mother Asthma Son Relation Name Status Comments Father Mother Son Social History Tobacco Use Types Packs/Day Years Used Date Smoking Tobacco: Former Cigarettes 0.3 5 1 04/09/2008 - 02/06/2014 Tobacco Cessation:Counseling Given: No Alcohol Use Standard Drinks/Week Comments Yes 0 (1 standard drink = 0.6 oz pur e alcohol) Social-occasional Comments Unknown Sex and Gender Information Value Date Recorded Sex Assigned at Not on file Legal Sex Female 12:36 PM EDT Gender Identity Not on file Sexual Orientation Not on file Last Filed Vital Signs Vital Sign Reading Time Taken Comments Blood Pressure 119/72 01/21/2016 2:19 PM EST Pulse 86 01/21/2016 2:19 PM EST Temperature 36.3 ??C (97.3 ??F) 01/21/2016 2:19 PM ES T Respiratory Rate 16 01/21/2016 2:19 PM EST Oxygen Saturation 98% 01/21/2016 2:19 PM EST Inhaled Oxygen Concentration - - Weight 64.9 kg (143 lb) 01/21/2016 2:19 PM EST Height 160.5 cm (5' 3.2 ) 01/21/2016 2:19 PM EST Body Mass Index 25.17 01/21/2016 2:19 PM EST Plan of Treatment Health Maintenance Due Date Last Done Comments Osteoporosis screening (bone density) 1959 HIV screening 11/27/1972 Hepatitis C screening 11/27/1977 Tetanus adult (Td q 10,TDAP once) 1979 Cervical cancer screening 11/27/1980 Breast cancer screening 1999 Lipid disorder screening 1999 Colon cancer screening, Colonoscopy 11/27/2004 Shingles vaccine (Shingrix) (1 of 2 - Shingrix (RZV) 2 Dose Standard Series) 11/27/2009 Diabetes screening 10/09/2017 10/09/2014, 08/07/2014 Influenza vaccine 09/16/2023 10/30/2015 Covid-19 vaccine series (1 - 2023- season) 2023 Pneumococcal Vaccine (50+ years) (1 of 1 - PCV) 11/27/2024 RSV Discussion (1 - 1-dose 7 5+ series) 11/27/2034 Meningococcal Vaccine Aged Out No keegan jeanette eligible based on patient's age to complete this topic Pneumococcal Vaccine (2 - 49 years) Aged Out No longer eligible b ased on patient's age to complete this topic Procedures Procedure Name Priority Date/Time Associated Diagnosis Comments BASIC METABOLIC PANEL Urgent 10/09/2014 1:25 PM EDT Cough from Last 3 Months or Most Recently Relevant to Health Maintenance Results * (ABNORMAL) Basic metabolic panel (10/09/2014 1:25 PM EDT) Glucose 93 70 - 100 mg/dL [facility] BUN 23(H) 7 - 20 mg/dL [facility] Creatinine 0.5 0.5 - 1.2 mg/dL [facility] BUN/Creatinine Ratio 46.0(H) 10.0 - 20.0 [facility] Anion Gap 17(H) 7 - 16 [facility] CO2 20.2(L) 22.0 - 30.0 mmol/L [facility] Chloride 105 96 - 106 mmol/L [facility] Sodium 142 135 - 145 mmol/L [facility] Potassium 4.3 3.3 - 5.0 mmol/L [facility] Calcium 9.7 8.8 - 10.2 mg/dL [facility] Blood specimen (specimen) 10/09/2014 1:25 PM EDT Jonatan Delgado MD LAB BLOOD ORDERABL ES Final Result [facility] [address] [place] [id number] from Last 3 Months or Most Recently Relevant to Health Maintenance Insurance [id number] MEDICAID MEDICARE [id number] MEDICAID MEDICARE [id number] MEDICAID MEDICARE [id number] MEDICAID MEDICARE
== END 2024-04-17 16:16 | disposition home or self-care (01) ==
PROVIDERS: PCP Internal Medicine; Visit Provider Internal Medicine
DX: F32.1 Major depressive disorder, single episode, moderate (principal); S82.891A Other fracture of right lower leg, initial encounter for closed fracture; K21.9 Gastro-esophageal reflux disease without esophagitis; J45.50 Severe persistent asthma, uncomplicated; G43.909 Migraine, unspecified, not intractable, without status migrainosus; E78.5 Hyperlipidemia, unspecified

== ENCOUNTER → 2024-04-17 15:38 | Outpatient (BNVA) | payer MEDICARE, MEDICAID, SELFPAY | PROVIDERS: PCP Internal Medicine; Visit Provider Internal Medicine | DX: F32.1 Major depressive disorder, single episode, moderate (principal); S82.891A Other fracture of right lower leg, initial encounter for closed fracture; K21.9 Gastro-esophageal reflux disease without esophagitis; J45.50 Severe persistent asthma, uncomplicated; G43.909 Migraine, unspecified, not intractable, without status migrainosus; E78.5 Hyperlipidemia, unspecified | CPT/HCPCS: 96127; 99212 ==

== ENCOUNTER 2024-08-03 15:52 | Outpatient (REF) | payer MEDICARE, MEDICAID, SELFPAY ==
--- NOTE | ~2024-08-03 | XR_ITS ---
CLINICAL HISTORY: M54.6 - Pain in thoracic spine THORACIC SPINE X-RAYS 3 VIEWS COMPARISON: None provided. FINDINGS: Frontal, swimmer's, and lateral views of the thoracic spine were obtained. No evidence of an acute fracture or dislocation within the thoracic spine. There is minimal levocurvature of the thoracic spine. Mild multilevel endplate degenerative changes are noted. Mild elevation of the right hemidiaphragm is noted. There is calcific plaque in the thoracic aortic arch. IMPRESSION: 1. No acute disease. This document has been electronically signed by: Efrain Esparza M.D. on 08/04/2024 02:34:07
--- NOTE | ~2024-08-03 | XR_ITS ---
CLINICAL HISTORY: M54.50 - Low back pain, unspecified LUMBAR SPINE X-RAYS, FRONTAL AND LATERAL VIEWS COMPARISON: None provided. FINDINGS: Frontal and lateral views of the lumbar spine were obtained. Exam is limited due to patient positioning. The lumbar vertebral body heights are maintained without evidence of an acute fracture. There are endplate degenerative changes at L2-L3, L3-L4, and L4-L5. No spondylolysis or spondylolisthesis. Sacroiliac joints are unremarkable. Vascular calcifications are noted in the abdominal aorta. IMPRESSION: 1. No acute disease in the lumbar spine. Degenerative changes are present. This document has been electronically signed by: Efrain Esparza M.D. on 08/04/2024 02:28:17
== END 2024-08-03 15:53 | disposition home or self-care (01) ==
LOC: HO.XRAY 15:52
PROVIDERS: PCP Internal Medicine; Visit Provider Internal Medicine
DX: F32.1 Major depressive disorder, single episode, moderate (principal); M54.50 Low back pain, unspecified; M54.6 Pain in thoracic spine; K21.9 Gastro-esophageal reflux disease without esophagitis; E78.5 Hyperlipidemia, unspecified
CPT/HCPCS: 72070; 72100; 99212

== ENCOUNTER 2024-08-03 15:52 | Outpatient (AMB) | payer MEDICARE, MEDICAID, SELFPAY ==
[2024-08-03 16:18] VITALS: BP 130/78; BMI 24.1
--- NOTE | 2024-08-03 16:18 | A.OFFPC_ITS ---
Vital Signs 08/03/24 16:18 Height 5 ft 3 in Weight 136 lb BMI 24.1 BP 130/78 Blood Pressure Location Lt brachial Position Sitting Intake Visit Reasons: back pain Intake Note: Patient here for c/o back pain Sociology Faculty Member Required: No Accompanied by: Self / Same As Patient Allergies statins Adverse Reaction (Intermediate, Uncoded 08/03/24 16:28) elevated liver enzymes Medication List - Last Reconciled 08/03/24 by Janny Burnett MD alprazolam 1 mg PO TID PRN cane As directed cetirizine 10 mg PO BEDTIME citalopram 40 mg PO DAILY colesevelam 1,875 mg (3 x 625 mg) PO BID desvenlafaxine succinate ER 50 mg PO DAILY epinephrine 0.3 mg (0.3 mL) IM ONCE PRN 30 days estradiol 1 patch transdermal QWEEK fluticasone propion-salmeterol 250-50 mcg/dose 1 ea inhalation BID 30 days fluticasone propionate 50 mcg/actuation 1 spray intranasal DAILY gabapentin 800 mg PO BID hydroxyzine HCl 0837y19 mg PO TID PRN Magic Mouthwash Diphen/Lido/Antacid 1:1:1 10 mL PO TID montelukast 10 mg PO DAILY nabumetone 500 mg PO BID omalizumab mg subcut oxybutynin chloride ER 30 mg PO DAILY pantoprazole 40 mg PO DAILY quetiapine ER 400 mg PO BEDTIME rosuvastatin 20 mg PO DAILY 90 days simethicone (Gas Relief (simethicone)) 180 mg PO BID PRN 30 days sumatriptan succinate 50 mg PO Q2-4H PRN 30 days Ventolin HFA 90 mcg/actuation (albuterol sulfate) 2 puffs inhalation Q6H PRN 30 days NS Tobacco use date assessed: 04/17/24 Dental Screening Dental Screen Date: 04/17/24 HPI HPI Comments History of Present Illness Details The patient is a 63-year-old female presenting with thoracic back pain. The pain began after a fall on March 30, which resulted in surgery for a foot injury. Since the fall, the patient has experienced severe back pain, exacerbated by bending and movement, and reports that the pain radiates from the spine to the arms. The patient describes the pain as intense and debilitating, leading to significant anxiety and insomnia. She reports that the pain has worsened over the past month, significantly impacting her quality of life and ability to sleep. The patient is currently using a walker to aid mobility due to the foot surgery and ongoing pain. Her medication regimen includes venlafaxine, estradiol patch, asthma inhaler, gabapentin, hydroxyzine, montelukast, nabumetone, solair, oxybutynin, pantoprazole, quetiapine, rosuvastatin, simethicone, and sumatriptan. [facility] Medical History (Updated 08/03/24 @ 16:38 by Janny Burnett MD) Severe major depression without psychotic features Urge urinary incontinence Weight loss Abdominal pain GERD (gastroesophageal reflux disease) Fibromyalgia Severe asthma Migraines Dyslipidemia Surgical History History of total abdominal hysterectomy History of tubal ligation Family History Father Diabetes Mother Diabetes Hypertension Maternal Grandmother Diabetes Maternal Grandfather Diabetes Son In good health Brother In good health Sister In good health Family/Other Mental health disorder Social History Housing: Apartment Alcohol intake: former Patient Tobacco Use Status: Former Tobacco user Tobacco use type: Cigarette e-Cigarette/Vaping Use: Never Used Second Hand Smoke Exposure: No service: No Current occupational status: unemployed Cognitive needs: Yes (cane) Hearing needs: No Vision needs: Yes Questionnaire Thrive Questionnaire Date Thrive assessed: 04/17/24 ANGELITA-7 AMB Questionnaire ANGELITA-7 Date ANGELITA - 7 assessed: 04/17/24 Source: Developed by Drs. Carlos Alberto Llanes, Ada Vidal, Israel Maria and colleagues, with an educational eddie from [employer]. Review of Systems Const All systems reviewed & are unremarkable except as noted in HPI and below Card Denies chest pain at rest, Denies chest pain with activity, Denies edema, Denies irregular heart rhythm, Denies claudication, Denies dyspnea, Denies dyspnea on exertion, Denies orthopnea, Denies paroxysmal nocturnal dyspnea and Denies slow heart rate Resp Denies cough, Denies dyspnea and Denies dyspnea on exertion GI Denies abdominal pain, Denies change in bowel habits, Denies excessive flatus, Denies nausea and Denies vomiting Denies urinary incontinence, Denies urinary hesitancy and Denies urinary urgency Musc Denies abnormal gait, Reports back pain, Denies atrophy, Denies deformity and Denies limited range of motion Skin/Breast Denies bleeding lesions, Denies changing lesions and Denies rash Neuro Denies abnormal gait, Denies behavioral changes and Denies lack of coordination Psych Denies behavioral changes Physical exam (Primary Care) Vital Signs: Last Vital Signs BP 130/78 08/03/24 16:18 BMI result Body Mass Index 24.1 Tobacco/Smoking Status: Tobacco use Status Tobacco use date assessed 04/17/24 08/03/24 16:22 Patient Tobacco Use Status Former Tobacco user 08/03/24 16:22 Tobacco use type Cigarette 08/03/24 16:22 e-Cigarette/Vaping Use Never Used 08/03/24 16:22 Thrive Assessment: Date of Thrive Assessment Date Thrive assessed 04/17/24 08/03/24 16:22 Const Limitations: ambulation with walker Resp Effort & Inspection: normal respiratory effort Auscultation: clear to auscultation bilaterally Cardio Jugular venous distension: no JVD Rate: regular rate Rhythm: regular rhythm Heart sounds: S1 normal heart sound present and S2 normal heart sound present Back/Spine/Pelvis Thoracic/Lumbar Spine: thoracic spinal tenderness and lumbar spinal tenderness Extrem General: Yes full ROM Coding Level of Care Code Est Pt Level 4 (49281) Complex EM visit Add On G2211 Diagnoses Moderate major depression F32.1 Dyslipidemia E78.5 Gastroesophageal reflux disease, unspecified whether esophagitis present K21.9 Esophagitis presence: esophagitis presence not specified Lumbar pain M54.50 Thoracic spine pain M54.6 Time Spent (min) 23 Assessment & Plan Assessment & Plan (1) Moderate major depression: Code(s): F32.1 - Major depressive disorder, single episode, moderate Category: Medical (2) Dyslipidemia: Code(s): E78.5 - Hyperlipidemia, unspecified Category: Medical (3) GERD (gastroesophageal reflux disease): Code(s): K21.9 - Gastro-esophageal reflux disease without esophagitis Category: Medical Qualifiers: Esophagitis presence: esophagitis presence not specified Qualified Code(s): K21.9 - Gastro-esophageal reflux disease without esophagitis (4) Lumbar pain: Code(s): M54.50 - Low back pain, unspecified Category: Medical (5) Thoracic spine pain: Code(s): M54.6 - Pain in thoracic spine Category: Medical Plan The plan includes initiating physical therapy to address the thoracic back pain and improve mobility. Pain management will be enhanced with the prescription of Celecoxib Celebrex) to alleviate discomfort. Referral to pain management services is recommended to provide comprehensive care and address the patient's anxiety and insomnia related to the pain. A follow-up with imaging studies is advised to ensure proper healing and to rule out any further complications from the fall. Patient was informed and verbally consented to the use of an ambient scribe for clinic note documentation during this visit. Orders: Orders XR thoracic spine 2V Today M54.6 - Pain in thoracic spine XR lumbar spine 2-3V Today M54.50 - Low back pain, unspecified PT Evaluation and Treatment Today M54.50 - Low back pain, unspecified, M54.6 - Pain in thoracic spine Referrals Pain Management Referral M54.50 - Low back pain, unspecified, M54.6 - Pain in thoracic spine Medications: New celecoxib (Celebrex) 200 mg PO BID PRN 60 caps 0RF pain 30 days
--- OUTSIDE RECORDS SUMMARY | 2024-08-03 16:52 | XMS_ITS | Patient Health Record ---
Author Organization [facility] Address [address] [place] [phone] Care Team Providers Care E Commerce Analyst Name Role Phone Janny Meadows Primary Care Provider Unavailab Brian Coe Jr Unavailable Reason For Referral No Information Medications Medication SIG (Take, Route, Frequency, Duration) Notes [...] tablet Orally Twic e a day Active Immunizations Vaccine Route Administration Date Status Comme nts Influenza Unknown 11/22/2019 Administered Social History Tobacco Use: Social History Observation Description Date Details (start date - stop date) Former Smoker NA - NA Tobacco Use/Smoking Question Answer Notes Patient is a former smoker How long has it been since you last smoked? > 10 years Alcohol Screen Question Answer Notes Did you have a drink containing alcohol in the p ast year? No Points 0 Interpretation Negative Problems Problem Type SNOMED Code ICD Code Onset Dates Problem Status W/U Status Risk Notes Problem 550628834 Colon cancer screening (Z12.11) Active confirmed Problem [id number] Gastroesophageal reflux disease, esophagitis presence not specified (K21.9) Active confirmed Problem GERD without esophagitis (K21.9) Active confirmed Plan Of Treatment Future Test Test Name Order Date UPPER GI ENDOSCOPY 10/22/2017 COLONOSCOPY 10/22/2017 Insurance Providers Payer Name Payer Address Payer Phone Subscriber Number Group Number Insured Name Patient Relationship to Insured Coverage Start Date Coverage End Date MEDICARE OF [place] [address] [place] [address] [id number] BOB LEMUS Self - patient is the insured MEDICAID OF [facility] [address] [place] [address] [phone] [id number] LEMUSBOB DOMINGO Self - patient is the insured Medical (General) History Medical History History ICD Code elevated cholesterol asthma overactive bladder gastroesophageal reflux disease arthritis fatty liver acid reflux Surgical History Surgery Date(Month/Year) partial hysterectomy upper endoscopy 02/23/18, norm al, no Niño's esophagus or H. pylori on biopsy colonoscopy 02/23/18, normal, ten-year fol lowup recommended
== END 2024-08-03 16:36 | disposition home or self-care (01) ==
PROVIDERS: PCP Internal Medicine; Visit Provider Internal Medicine
DX: F32.1 Major depressive disorder, single episode, moderate (principal); E78.5 Hyperlipidemia, unspecified; K21.9 Gastro-esophageal reflux disease without esophagitis; M54.50 Low back pain, unspecified; M54.6 Pain in thoracic spine

== ENCOUNTER → 2024-08-03 16:45 | Outpatient (BNV) | payer MEDICARE, MEDICAID, SELFPAY | PROVIDERS: PCP Internal Medicine; Visit Provider Radiology Diagnostic Radiology | DX: M54.6 Pain in thoracic spine (principal); M51.360 Other intervertebral disc degeneration, lumbar region with discogenic back pain only | CPT/HCPCS: 72070; 72100 ==

== ENCOUNTER 2024-09-01 12:31 | Outpatient (AMB) | payer MEDICARE, MEDICAID, SELFPAY ==
--- OUTSIDE RECORDS SUMMARY | 2024-09-01 12:33 | XMS_ITS | Encounter Summary ---
Author Organization [facility] Address [address] [place] [phone] Care Team Providers Care Cook Helper Vegetable Name Role Phone Unavailable Primary Care Provider Unavailabl e Reason for Referral * Consultation (Routine) - Closed Specialty Diagnoses / Procedures Referred By Hardik t Referred To Contact Pulmonary Disease Diagnoses Drug-induced asthma (HC CODE) Dane Juarez MD Phone: tel: fax: [facility] [address] [place] [address], [address] [facility], [address] [place] [address] Phone: tel: fax: Referral ID Status Reason Start Date Expiration Date V isits Requested Visits Authorized [id number] Closed Specialty Services Required 06/19/2014 06/19/2015 1 1 Encounter Details Date Type Department Care Team ([facility] Contact Info) Description 06/19/2014 Transcribed Orders Referral Link Providers [address] [place] [address] System, Provider Not In Cough variant asthma [...] this encounter Visit Diagnoses Diagnosis Cough variant asthma (HC CODE)- Primary Cough variant asthma Drug-induced asthma (HC CODE) documented in this encounter
--- OUTSIDE RECORDS SUMMARY | 2024-09-01 12:33 | XMS_ITS | Patient Health Record ---
Author Organization [facility] Address [address] [place] [phone] Care Team Providers Care Button Inspector Name Role Phone Janny Meadows Primary Care [...] Problem Status W/U Status Risk Notes Problem [id number] Colon cancer screening (Z12.11) Active confirmed Problem [id number] Gastroesophageal reflux disease, esophagitis presence not specified [...] OF [place] [address] [place] [address] [id number] BOB LEMUS Self - patient is the insured MEDICAID OF [facility] [address] [place] [address] [phone] [id number] LEMUSBOB DOMINGO Self - patient is the insured Medical (General) History Medical History History ICD Code elevated cholesterol asthma overactive bladder gastroesophageal reflux disease arthritis fatty liver acid reflux Surgical History Surgery Date(Month/Year) partial hysterectomy upper endoscopy 02/23/18, norm al, no Niño's esophagus or H. pylori on biopsy colonoscopy 02/23/18, normal, ten-year fol lowup recommended
--- NOTE | 2024-09-01 12:54 | A.OFFVIS_ITS ---
Vital Signs 09/01/24 12:59 Height 5 ft 3 in Weight 135 lb BMI 23.9 BP 183/78 H Blood Pressure Location Rt brachial Position Sitting Pulse 75 Pulse Source Pulse Oximeter Pulse Oximetry (%) 97 Oxygen Delivery Method Room Air Intake Visit Reasons: Low back pain Intake Note: Pain today 07/25 Relay Technician Required: No Accompanied by: Self / Same As Patient Allergies statins Adverse Reaction (Intermediate, Uncoded 08/03/24 16:28) elevated liver enzymes HPI Comments Details: The patient is a 63-year-old female presenting with chronic lower back pain. The pain began on March 30 of this year, following a fall that resulted in a right ankle fracture. The pain is described as constant sharp and aching, primarily located in the lower back, but occasionally radiating to the upper and middle back. The patient reports that the pain is exacerbated by bending and lifting, and is not relieved by current medications, including Celecoxib and Tylenol. She has previously tried gabapentin, which was discontinued, and she requests refill for this. X-rays revealed osteoarthritis, degenerative disc changes, and mild levoscoliosis in thoracic spine, but no fractures, dislocations or acute disease. The patient denies any numbness, tingling, or radiation of pain to the legs. The patient has a history of fibromyalgia, contributing to her widespread pain. 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 and affects travel - Aberrant Drug Related Behaviors: None reported Oswestry Low Back Pain Disability Score=36 [facility] Medical History Severe major depression without psychotic features Urge urinary incontinence Weight loss Abdominal pain GERD (gastroesophageal reflux disease) Fibromyalgia Severe asthma Migraines Dyslipidemia Surgical History History of total abdominal hysterectomy History of tubal ligation Family History Father Diabetes Mother Diabetes Hypertension Maternal Grandmother Diabetes Maternal Grandfather Diabetes Son In good health Brother In good health Sister In good health Family/Other Mental health disorder Social History Housing: Apartment Alcohol intake: former Patient Tobacco Use Status: Former Tobacco user Tobacco use type: Cigarette e-Cigarette/Vaping Use: Never Used Second Hand Smoke Exposure: No service: No Current occupational status: unemployed Cognitive needs: Yes (cane) Hearing needs: No Vision needs: Yes Review of Systems Const Details: - Musculoskeletal: Reports chronic mid and lower back pain, denies radiation to legs - Neurological: Denies numbness, tingling, or paresthesia, bladder or bowel dysfunction or saddle anesthesia - General: Reports pain affecting sleep and daily activities All systems reviewed & are unremarkable except as noted in HPI and below Physical Exam Vital Signs: Last Vital Signs Pulse 75 09/01/24 12:59 BP 183/78 H 09/01/24 12:59 Pulse Ox 97 09/01/24 12:59 Oxygen Delivery Method Room Air 09/01/24 12:59 BMI result Body Mass Index 23.9 General: Appears afebrile. Alert and oriented. Mood and affect appropriate. Follows and participates in conversation appropriately. Respiratory effort is unlabored. No cough. Able to transition from sit to stand unassisted. Ambulates with normal heel strike and toe off on the left. Right ankle boot in place. Uses cane with ambulation. Back/Spine/Pelvis Other: Limited lumbar ROM due to pain. Lumbar flexion, bending, and extension with axial rotations reproduces moderate pain. Demonstrates 5/5 strength of quadriceps bilaterally as well as flexion/dorsiflexion of bilateral feet against resistance. 2+ pedal pulses bilaterally. Straight leg rise with dorsiflexion negative bilaterally. +2 patellar and +1 on the left, no checked on the right (recent surgery) achilles reflexes bilaterally. Facet loading test positive bilaterally. Joyce sign, Dipak?s, Pelvic compression and Stinchfield tests are negative bilaterally. No groin pain with I/E hip rotations. Valsalva maneuver negative. Cervical Spine: cervical ROM normal, cervical muscular tenderness and No Cervical spine tenderness Thoracic/Lumbar Spine: thoracic and lumbar spine normal to inspection, No Thoracic/lumbar spine scar(s), Lasegue's sign negative, straight leg raise negative bilaterally, pain with thoraco-lumbar ROM, paraspinal muscle tenderness, thoraco-lumbar ROM limited, No thoracic spinal tenderness and lumbar spinal tenderness (L4-S1) Sacroiliac joints: bilaterally tender to palpation Extrem General: Yes capillary refill normal, Yes no clubbing, cyanosis or edema and Yes no calf tenderness Results Reviewed Results Reviewed: THORACIC SPINE X-RAYS 3 VIEWS 08/04/24 COMPARISON: None provided. FINDINGS: Frontal, swimmer's, and lateral views of the thoracic spine were obtained. No evidence of an acute fracture or dislocation within the thoracic spine. There is minimal levocurvature of the thoracic spine. Mild multilevel endplate degenerative changes are noted. Mild elevation of the right hemidiaphragm is noted. There is calcific plaque in the thoracic aortic arch. IMPRESSION: No acute disease. LUMBAR SPINE X-RAYS, FRONTAL AND LATERAL VIEWS 08/04/24 COMPARISON: None provided. FINDINGS: Frontal and lateral views of the lumbar spine were obtained. Exam is limited due to patient positioning. The lumbar vertebral body heights are maintained without evidence of an acute fracture. There are endplate degenerative changes at L2-L3, L3-L4, and L4-L5. No spondylolysis or spondylolisthesis. Sacroiliac joints are unremarkable. Vascular calcifications are noted in the abdominal aorta. IMPRESSION: No acute disease in the lumbar spine. Degenerative changes are present. Assessment & Plan Assessment & Plan (1) Thoracic spine pain: Code(s): M54.6 - Pain in thoracic spine Category: Medical (2) Fibromyalgia: Code(s): M79.7 - Fibromyalgia Category: Medical (3) Lumbar degenerative disc disease: Code(s): M51.369 - Other intervertebral disc degeneration, lumbar region without mention of lumbar back pain or lower extremity pain Category: Medical (4) Lumbar spondylosis: Code(s): M47.816 - Spondylosis without myelopathy or radiculopathy, lumbar region Category: Medical (5) History of fall: Code(s): Z91.81 - History of falling Category: Medical Plan The patient will begin a course of physical therapy for six to eight weeks to address her chronic mid and lower back pain. If physical therapy does not provide sufficient relief, interventional procedures such as diagnostic injections will be considered to evaluate eligibility for radiofrequency ablation or peripheral nerve stimulation. The patient will continue her current medications, including Celecoxib and Tylenol, and a lidocaine patch has been prescribed for additional pain management. Gabapentin will be restarted at a lower dose to assess its efficacy in managing her pain. All questions and concerns have been answered and patient agreed with the plan. Follow after PT and sooner as needed. Patient was informed and verbally consented to the use of an ambient scribe for clinic note documentation during this visit. Orders: Orders PT Evaluation and Treatment Today M47.816 - Spondylosis without myelopathy or radiculopathy, lumbar region, M51.369 - Other intervertebral disc degeneration, lumbar region without mention of lumbar back pain or lower extremity pain, M54.6 - Pain in thoracic spine, M79.7 - Fibromyalgia, Z91.81 - History of falling Medications: New lidocaine 5% leave on most painful area for up to 12 hrs topically daily; 30 ea 3RF pain 30 days M47.816 - Spondylosis without myelopathy or radiculopathy, lumbar region, M51.369 - Other intervertebral disc degeneration, lumbar region without mention of lumbar back pain or lower extremity pain, M54.6 - Pain in thoracic spine Changed From gabapentin 800 mg PO BID M79.7 - Fibromyalgia To gabapentin 300 mg PO BID 60 caps 0RF pain 30 days M79.7 - Fibromyalgia Coding Level of Care Code New Pt Level 4 (84105) Diagnoses Thoracic spine pain M54.6 Fibromyalgia M79.7 Lumbar degenerative disc disease M51.369 Lumbar spondylosis M47.816 History of fall Z91.81
[2024-09-01 12:59] VITALS: BP 183/78; PULSE 75; O2SAT 97; BMI 23.9
== END 2024-09-01 13:32 | disposition home or self-care (01) ==
LOC: HO.PMC 12:31
PROVIDERS: PCP Internal Medicine; Referring Provider Internal Medicine; Visit Provider Nurse Practitioner Family
DX: M79.7 Fibromyalgia (principal); M51.369 Other intervertebral disc degeneration, lumbar region without mention of lumbar back pain or lower extremity pain; M47.816 Spondylosis without myelopathy or radiculopathy, lumbar region; Z91.81 History of falling
CPT/HCPCS: 99204

== ENCOUNTER → 2024-09-01 12:31 | Outpatient (BNVA) | payer MEDICARE, MEDICAID, SELFPAY | PROVIDERS: PCP Internal Medicine; Referring Provider Internal Medicine; Visit Provider Nurse Practitioner Family | DX: M54.6 Pain in thoracic spine (principal); M79.7 Fibromyalgia; M51.369 Other intervertebral disc degeneration, lumbar region without mention of lumbar back pain or lower extremity pain; M47.816 Spondylosis without myelopathy or radiculopathy, lumbar region; Z91.81 History of falling | CPT/HCPCS: 99202 ==

== ENCOUNTER 2024-09-27 07:18 | Outpatient (AMB) | payer MEDICARE, MEDICAID, SELFPAY ==
--- NOTE | 2024-09-27 07:21 | A.OFFVIS_ITS ---
Vital Signs 09/27/24 07:23 Height 5 ft 3 in Weight 136 lb BMI 24.1 BP 130/80 Intake Visit Reasons: annual Rope Tow Operator Required: No Information Interpreted: non-clinical & clinical Recruiting Internship: Recruiting Internship Present (Kierra WILDE) Accompanied by: Self / Same As Patient Allergies statins Adverse Reaction (Intermediate, Uncoded 09/27/24 07:24) elevated liver enzymes Post menopausal: Yes HPI Comments Details: Presenting for annual exam. No complaints. The patient is a supracervical hysterectomy Last Pap/HPV was ? Last Mammogram was in 11/08 BI-RADS 2 at [facility] Last Colonoscopy was in 2019, the recommendation was to repeat in 10 years [facility] Medical History Severe major depression without psychotic features Urge urinary incontinence Weight loss Abdominal pain GERD (gastroesophageal reflux disease) Fibromyalgia Severe asthma Migraines Dyslipidemia Surgical History (Updated 09/27/24 @ 07:44 by Girish Reilly MD) History of total abdominal hysterectomy History of tubal ligation Family History Father Diabetes Mother Diabetes Hypertension Maternal Grandmother Diabetes Maternal Grandfather Diabetes Son In good health Brother In good health Sister In good health Family/Other Mental health disorder Social History Household Members: None Housing: Apartment Alcohol intake: former Patient Tobacco Use Status: Former Tobacco user Tobacco use type: Cigarette Years Smoked: 15 e-Cigarette/Vaping Use: Never Used Second Hand Smoke Exposure: No service: No Current occupational status: disabled Sexually active: No Sexual orientation: Straight/Heterosexual Gender identity: Female Cognitive needs: Yes (cane) Hearing needs: No Vision needs: Yes Female Reproductive History Menstrual Menopause type: surgical Total pregnancies: 1 Full term: 1 Number of Living Children: 1 Date of Mammogram: 10/28/23 Review of Systems Const All systems reviewed & are unremarkable except as noted in HPI and below Card Reports as per HPI and Reports no additional complaints Resp Reports as per HPI and Reports no additional complaints GI Reports as per HPI and Reports no additional complaints Reports as per HPI Physical Exam Vital Signs: Last Vital Signs BP 130/80 09/27/24 07:23 BMI result Body Mass Index 24.1 Const General: cooperative, healthy appearing and comfortable General: Yes bladder normal to palpation External Female Exam: No lesion Speculum Exam - Vagina: normal appearance of the vagina, normal vaginal discharge and not erythematous Speculum Exam - Cervix: normal appearance of the cervix and normal palpation Bimanual exam- vagina & uterus: bladder normal to palpation, normal palpation and uterus absent Bimanual Exam- Adnexa, other: Other (No masses detected) Assessment & Plan Assessment & Plan (1) Well woman exam: Code(s): Z01.419 - Encounter for gynecological examination (general) (routine) without abnormal findings Category: Medical Plan: Co testing done. Counseled the patient about the recommended dietary allowance of 1200 mg of Calcium & 600 IU of vitamin D. Instructions given the patient to schedule next screening Mammogram in 10/09. The patient was instructed to perform monthly self-breast exams and schedule annual exam in a year. All questions answered and the patient verbalized understanding. Coding Level of Care Code New Pt Prev Care 40-64y(03492) Diagnoses Well woman exam Z01.419
--- OUTSIDE RECORDS SUMMARY | 2024-09-27 07:21 | XMS_ITS | Patient Health Record ---
Author Organization [facility] Address [address] [place] [id number] Care Team Providers Care Music Engineer Name Role Phone Janny Meadows Primary Care Provider Unavailab Brian Coe Jr Unavailable [phone] Reason For Referral No Information Medications Medication [...] Problem Status W/U Status Risk Notes Problem [id number] Colon cancer screening (Z12.11) Active confirmed Problem [id number] Gastroesophageal reflux disease, esophagitis presence not specified [...] OF [place] [address] [place] [address] [id number] BOB LEMUS Self - patient is the insured MEDICAID OF [facility] [address] [place] [phone] [id number] LEMUSBOB DOMINGO Self - patient is the insured Medical (General) History Medical History History ICD Code elevated cholesterol asthma overactive bladder gastroesophageal reflux disease arthritis fatty liver acid reflux Surgical History Surgery Date(Month/Year) partial hysterectomy upper endoscopy 02/23/18, norm al, no Niño's esophagus or H. pylori on biopsy colonoscopy 02/23/18, normal, ten-year fol lowup recommended
--- OUTSIDE RECORDS SUMMARY | 2024-09-27 07:21 | XMS_ITS | Encounter Summary ---
Author Organization [facility] Address [address] [place] [id number] Care Team Providers Care Toy Assembler Wood Name Role Phone Unavailable Primary Care Provider Unavailabl e Reason for Referral * Consultation (Routine) - Closed Specialty Diagnoses / Procedures Referred By Hardik t Referred To Contact Pulmonary Disease Diagnoses Drug-induced asthma (HC CODE) Dane Juarez MD Phone: tel: fax: [facility] [address] [place] [address], [address] [facility], [address] [place] [address] Phone: tel: fax: Referral ID Status Reason Start Date Expiration Date V isits Requested Visits Authorized [id number] Closed Specialty Services Required 06/19/2014 06/19/2015 1 1 Encounter Details Date Type Department Care Team ([facility] Contact Info) Description 06/19/2014 Transcribed Orders Referral Link Providers [address] [place] [address] System, Provider Not In Cough variant asthma [...]
[2024-09-27 07:23] VITALS: BP 130/80; BMI 24.1
== END 2024-09-27 08:02 | disposition home or self-care (01) ==
LOC: HO.HWS 07:18
PROVIDERS: PCP Internal Medicine; Visit Provider Obstetrics & Gynecology
DX: Z01.419 Encounter for gynecological examination (general) (routine) without abnormal findings (principal)
CPT/HCPCS: 99386

== ENCOUNTER 2024-09-27 07:18 | Outpatient (REF) | payer MEDICARE, MEDICAID, SELFPAY | END 2024-09-27 07:19 | disposition home or self-care (01) | LOC: HO.LNP 07:18 | PROVIDERS: PCP Internal Medicine; Visit Provider Obstetrics & Gynecology | DX: Z01.419 Encounter for gynecological examination (general) (routine) without abnormal findings (principal); Z11.51 Encounter for screening for human papillomavirus (HPV); Z98.51 Tubal ligation status | CPT/HCPCS: 87626; 88175; 99386 ==

== ENCOUNTER 2024-11-01 14:08 | Outpatient (AMB) | payer MEDICARE, MEDICAID, SELFPAY ==
[2024-11-01 14:17] VITALS: BP 130/64; PULSE 82; RESP 18; TEMP 36.3; O2SAT 96; BMI 24.7
--- NOTE | 2024-11-01 14:17 | MHC.PC.OV ---
Vital Signs 11/01/24 14:17 Height 5 ft 3 in Blood Pressure Location Lt brachial Position Sitting Respiration 18 Pulse Source Pulse Oximeter Temp Source Temporal Artery Scan Oxygen Delivery Method Room Air Intake Visit Reasons: SWV G0439 Science Job Titles Required: No Accompanied by: Self / Same As Patient Allergies statins Adverse Reaction (Intermediate, Uncoded 09/27/24 07:24) elevated liver enzymes Tobacco use date assessed: 11/01/24 Last assessed Fall Risk: 11/01/24 Dental Screening Dental Screen Date: 11/01/24 [facility] Medical History Severe major depression without psychotic features Urge urinary incontinence Weight loss Abdominal pain GERD (gastroesophageal reflux disease) Fibromyalgia Severe asthma Migraines Dyslipidemia Surgical History History of total abdominal hysterectomy History of tubal ligation Family History Father Diabetes Mother Diabetes Hypertension Maternal Grandmother Diabetes Maternal Grandfather Diabetes Son In good health Brother In good health Sister In good health Family/Other Mental health disorder Social History Household Members: None Housing: Apartment Alcohol intake: former Patient Tobacco Use Status: Former Tobacco user Tobacco use type: Cigarette Years Smoked: 15 e-Cigarette/Vaping Use: Never Used Second Hand Smoke Exposure: No service: No Current occupational status: disabled Sexual orientation: Straight/Heterosexual Gender identity: Female Cognitive needs: Yes (cane) Hearing needs: No Vision needs: Yes Questionnaire PHQ-9 Over the last 2 weeks, how often have you been bothered by any of the following problems? 1. Little interest or pleasure in doing things: nearly every day 2. Feeling down, depressed, or hopeless: nearly every day 3. Trouble falling or staying asleep, or sleeping too much: nearly every day 4. Feeling tired or having little energy: several days 5. Poor appetite or overeating: not at all 6. Feeling bad about yourself - or that you are a failure or have let yourself or your family down: several days 7. Trouble concentrating on things, such as reading the newspaper or watching television: several days 8. Moving or speaking so slowly that other people could have noticed. Or the opposite - being so fidgety or restless that you have been moving around a lot more than usual: not at all 9. Thoughts that you would be better off or of hurting yourself in some way: not at all Total score: 12 Depression Screening Interpretation: Positive Depression Screening Follow-up: Existing condition, In treatment, Community Mental Health Worker F/U and Follow-up Visit Requested Depression Screening Done: Yes 74777 - PHQ-9 Billing: Yes Source: Developed by Drs. Carlos Alberto Llanes, Ada Vidal, Israel Maria and colleagues, with an educational eddie from [employer]. Thrive Questionnaire Date Thrive assessed: 04/17/24 I am a: Patient What is your living situation today?: I have a steady place to live Within the past 12 months, did the food you bought not last and you didn't have the money to get more?: Never true Within the past 12 months, did you worry whether your food would run out before you got money to buy more?: Never true Do you have trouble paying for medicines?: No Do you have trouble getting transportation to medical appointments?: No Do you have trouble paying your heating and electricity bill?: No Do you have trouble taking care of your child, family member or friend?: No Do you have trouble with day-to-day activities such as bathing, preparing meals, shopping, managing finances, etc.?: No Are you currently unemployed and looking for a job?: No Are you interested in more education?: No Please select the resources that you would like help with: None Currently or been in a relationship where the following occur: No concerns reported THRIVE Score: 0 AUDIT C Alcohol Use Questionnaire (AUDIT-C) 1. How often do you have a drink containing alcohol?: Never Total Score: 0 Score Reviewed/Action Taken: No ANGELITA-7 AMB Questionnaire ANGELITA-7 Date ANGELITA - 7 assessed: 04/17/24 Feeling nervous, anxious, or on edge: 3 = Nearly every day Not being able to stop or control worryin = Several days Worrying too much about different things: 3 = Nearly every day Trouble relaxin = Several days Being so restless that it is hard to sit still: 0 = Not at all Becoming easily annoyed or irritable: 2 = More than half the days Feeling afraid as if something awful might happen: 1 = Several days Total ANGELITA-7 score (0-4 normal; 5-9 mild; 10-14 moderate; 15-21 severe): 11 Source: Developed by Drs. Carlos Alberto Llanes, Ada Vidal, Israel Maria and colleagues, with an educational eddie from [employer]. ANGELITA-7 Assessment Billing ANGELITA-7 Assessment Tool: ANGELITA-7 Assessment 54228 Review of Systems Const All systems reviewed & are unremarkable except as noted in HPI and below Card Denies chest pain at rest, Denies chest pain with activity, Denies edema, Denies irregular heart rhythm, Denies claudication, Denies dyspnea, Denies dyspnea on exertion, Denies orthopnea, Denies paroxysmal nocturnal dyspnea and Denies slow heart rate Resp Denies cough, Denies dyspnea and Denies dyspnea on exertion Neuro Denies confusion Psych Denies confusion Physical exam (Primary Care) Vital Signs: Last Vital Signs Resp 18 11/01/24 14:17 Oxygen Delivery Method Room Air 11/01/24 14:17 Tobacco/Smoking Status: Tobacco use Status Tobacco use date assessed 11/01/24 11/01/24 14:19 Patient Tobacco Use Status Former Tobacco user 11/01/24 14:19 Tobacco use type Cigarette 11/01/24 14:19 e-Cigarette/Vaping Use Never Used 11/01/24 14:19 PHQ-9: PHQ-9 Score PHQ-9: Total score 12 11/01/24 14:19 Depression Screening Interpretation: Positive Depression Screening Follow-up: Existing condition, In treatment, Community Mental Health Worker F/U and Follow-up Visit Requested Thrive Assessment: Date of Thrive Assessment Date Thrive assessed 04/17/24 11/01/24 14:19 Currently or been in a relationship where the following occur: No concerns reported Const General: No confusion Orientation/consciousness: patient oriented x3 and No confusion Resp Effort & Inspection: normal respiratory effort Auscultation: clear to auscultation bilaterally Cardio Jugular venous distension: no JVD Rate: regular rate Rhythm: regular rhythm Heart sounds: S1 normal heart sound present and S2 normal heart sound present Neuro General: patient oriented x3, no focal motor deficits and No confusion Romberg Test: Negative Extrem General: Yes full ROM Psych Appearance: grossly normal Coding Additional Codes ANGELITA-7 Assessment Billing - ANGELITA-7 Assessment Tool: ANGELITA-7 Assessment 24038 ([id number]) PHQ-9 - 69327 - PHQ-9 Billing: Yes ([id number])
--- NOTE | 2024-11-01 14:56 | A.OFFVIS_ITS ---
Intake Vital Signs 11/01/24 14:17 Height 5 ft 3 in Weight 139 lb 4 oz BMI 24.7 BP 130/64 Blood Pressure Location Lt brachial Position Sitting Respiration 18 Pulse 82 Pulse Source Pulse Oximeter Temp 97.3 F Temp Source Temporal Artery Scan Pulse Oximetry (%) 96 Oxygen Delivery Method Room Air Intake Visit Reasons: SWV G0439 Booster Pump Oiler Required: No Accompanied by: Self / Same As Patient Allergies statins Adverse Reaction (Intermediate, Uncoded 11/01/24 15:10) elevated liver enzymes Medication List - Last Reconciled 11/01/24 by Janny Burnett MD alprazolam 1 mg PO TID PRN cane As directed celecoxib (Celebrex) 200 mg PO BID PRN 30 days cetirizine 10 mg PO BEDTIME citalopram 40 mg PO DAILY colesevelam 1,875 mg (3 x 625 mg) PO BID desvenlafaxine succinate ER 50 mg PO DAILY epinephrine 0.3 mg (0.3 mL) IM ONCE PRN 30 days fluticasone propion-salmeterol 250-50 mcg/dose 1 ea inhalation BID 30 days fluticasone propionate 50 mcg/actuation 1 spray intranasal DAILY gabapentin 300 mg PO BID 30 days hydroxyzine HCl [id number] mg PO TID PRN lidocaine 5% leave on most painful area for up to 12 hrs topically daily; 30 days lidocaine 5% 2 patches topical DAILY Magic Mouthwash Diphen/Lido/Antacid 1:1:1 10 mL PO TID mirabegron ER (Myrbetriq) 50 mg PO DAILY montelukast 10 mg PO DAILY nabumetone 500 mg PO BID omalizumab mg subcut pantoprazole 40 mg PO DAILY quetiapine ER 400 mg PO BEDTIME rosuvastatin 20 mg PO DAILY 90 days simethicone (Gas Relief (simethicone)) 180 mg PO BID PRN 30 days sumatriptan succinate 50 mg PO Q2-4H PRN 30 days Ventolin HFA 90 mcg/actuation (albuterol sulfate) 2 puffs inhalation Q6H PRN 30 days NS HPI HPI Comments History of Present Illness Details The patient is a 63-year-old female presenting with a Medicare annual wellness exam. She reports urinary incontinence and has been evaluated by a urologist, with discussions about potential interventions including medication and surgery. She plans to follow up with the urologist soon to discuss the effectiveness of current treatments. The patient has a history of Chronic Obstructive Pulmonary Disease (COPD) and is under the care of a gear cutter. She also experiences depression, for which she is receiving psychiatric care and medication management. She has neuropathy and is taking gabapentin for management. Additionally, she suffers from migraines and gastroesophageal reflux disease (GERD), for which she is on appropriate medications. Preventative care measures include a mammogram last October, a Pap smear with negative HPV last month, a colonoscopy in 2018 with the next due in 2028, and a bone density scan with normal results, next due in 2025. - Mammogram conducted this year - Pap smear with negative HPV result las t month - Colonoscopy performed in 2018, next du e in 2028 - Bone density scan normal, next due in 2025 [facility] Medical History Severe major depression without psychotic features Urge urinary incontinence Weight loss Abdominal pain GERD (gastroesophageal reflux disease) Fibromyalgia Severe asthma Migraines Dyslipidemia Surgical History History of total abdominal hysterectomy History of tubal ligation Family History Father Diabetes Mother Diabetes Hypertension Maternal Grandmother Diabetes Maternal Grandfather Diabetes Son In good health Brother In good health Sister In good health Family/Other Mental health disorder Social History Household Members: None Housing: Apartment Alcohol intake: former Patient Tobacco Use Status: Former Tobacco user Tobacco use type: Cigarette Years Smoked: 15 e-Cigarette/Vaping Use: Never Used Second Hand Smoke Exposure: No service: No Current occupational status: disabled Sexual orientation: Straight/Heterosexual Gender identity: Female Cognitive needs: Yes (cane) Hearing needs: No Vision needs: Yes Questionnaire Medicare Wellness Checkup What gender do you identify with?: female During the past 4 weeks, how much have you been bothered by emotional problems such as feeling anxious, depressed, irritable, sad or downhearted, and blue?: slightly During the past 4 weeks, has your physical & emotional health limited your social activities with family, friends, neighbors, or groups?: moderately During the past 4 weeks, how much bodily pain have you generally had?: severe pain During the past 4 weeks, was someone available to help you if you needed & wanted help?: yes, quite a bit During the past 4 weeks, what was the hardest physical activity you could do for at least 2 minutes?: very heavy Can you get to places out of walking distance without help? (For eg., can you travel alone on buses, taxis or drive your car?): No Can you go shopping for groceries or clothes without someone's help?: No Can you do your housework without help?: No Because of any health problems, do you need the help of another person with your personal care needs such as eating, bathing, dressing or getting around the house?: Yes Can you handle your own money without help?: Yes During the past 4 weeks, how would you rate your health in general?: fair During the past 4 weeks how have things been going for you?: good & bad parts about equal Are you having difficulties driving your car?: yes, often Do you always fasten your seat belt when you are in a car?: yes, usually During past 4 weeks, have you been bothered by the following: never: Problems using the telephone?, seldom: Teeth or denture problems?, sometimes: Trouble eating well?, often: Falling or dizzy when standing up and Sexual problems? and always: Tiredness or fatigue? Have you fallen 2 or more times in the past year?: Yes Are you afraid of falling?: Yes Are you a smoker?: no During the past 4 weeks, how many drinks of wine, beer, or other alcoholic beverages did you have?: no alcohol at all Do you exercise for about 20 minutes 3 or more times a week?: yes, most of the time Have you been given information to help with the following?: no: Hazards in your house that might hurt you? and no: Keeping track of your medications? How often do you have trouble taking medicines the way you have been told to take them?: I always take medicine as prescribed How confident are you that you can control & manage most of your health problems?: somewhat confident What is your race?: or origin or descent Mini Mental State Exam (MMSE) Orientation What is the (year) (season) (date) (day) (month)?: year, season, date, day and month Where are we (state) (county) (town or city) (hospital) (floor)?: state, county, town or city, hospital/clinic and floor Registration Name of 3 unrelated objects clearly and slowly, then ask patient to repeat all 3 of them. (1st repeat determines score. Make sure they can repeat all three): object 1, object 2 and object 3 Attention & Calculation (CHOOSE ONE) Spell WORLD backwards (DLROW): 5 letters Recall Ask patient to repeat the 3 items from question #3.: object 1, object 2 and object 3 Language Show patient a wristwatch & ask what it is. Repeat for pencil.: watch and pencil Ask the patient to repeat the phrase 'No ifs, ands, or buts' after you.: incorrect Ask the patient to 'take a piece of paper with their right hand' 'fold paper in half' 'place paper on floor': take paper in right hand, fold paper in half and place paper on floor Print the sentence 'CLOSE YOUR EYES' on a piece. If patient actually closes eyes then score.: followed written direction Give patient a blank piece of paper & ask to write a sentence. Score if it contains a noun & verb.: sentence contains subject and verb Ask patient to copy figure of intersecting pentagons exactly. Score if all 10 angles & 2 intersects are included.: all 10 angles present & 2 are intersected Score Score: 29 Activity of Daily Living Bathing - sponge bath, tub bath or shower: receives no assistance (gets in/out by self, if usual bathing means Dressing - getting clothes from closets & drawers, including inner/outer garme nts & fasteners.: gets clothes & gets completely dressed without help Toileting - going to the 'toilet room' for urine/bowel elimination & cleaning self/arranging clothes: goes to toilet room, cleans self, arranges clothes without help Transfer: moves in & out of bed and chair without help (may use support object) Continence: has occasional 'accidents' Feeding: feeds self without help Total Score: 0 Information obtained from: patient Using telephone: independent Traveling: independent Shopping: independent Preparing meals: independent Housework: independent Taking medicine: independent Managing money: independent PHQ-9 Over the last 2 weeks, how often have you been bothered by any of the following problems? 1. Little interest or pleasure in doing things: nearly every day 2. Feeling down, depressed, or hopeless: several days 3. Trouble falling or staying asleep, or sleeping too much: several days 4. Feeling tired or having little energy: nearly every day 5. Poor appetite or overeating: nearly every day 6. Feeling bad about yourself - or that you are a failure or have let yourself or your family down: several days 7. Trouble concentrating on things, such as reading the newspaper or watching television: several days 8. Moving or speaking so slowly that other people could have noticed. Or the opposite - being so fidgety or restless that you have been moving around a lot more than usual: several days 9. Thoughts that you would be better off or of hurting yourself in some way: not at all Total score: 14 Depression Screening Interpretation: Positive Depression Screening Follow-up: Existing condition, In treatment, Community Mental Health Worker F/U and Follow- up Visit Requested Depression Screening Done: Yes 46489 - PHQ-9 Billing: Yes Source: Developed by Drs. Carlos Alberto Llanes, Ada Vidal, Israel Maria and colleagues, with an educational eddie from [employer]. Review of Systems Const All systems reviewed & are unremarkable except as noted in HPI and below Card Denies chest pain at rest, Denies chest pain with activity, Denies edema, Denies irregular heart rhythm, Denies claudication, Denies dyspnea, Denies dyspnea on exertion, Denies orthopnea, Denies paroxysmal nocturnal dyspnea and Denies slow heart rate Resp Denies cough, Denies dyspnea and Denies dyspnea on exertion GI Denies abdominal pain, Denies change in bowel habits, Denies excessive flatus, Denies nausea and Denies vomiting Denies urinary incontinence, Denies urinary hesitancy and Denies urinary urgency Musc Denies abnormal gait, Denies atrophy, Denies deformity and Denies limited range of motion Skin/Breast Denies bleeding lesions, Denies changing lesions and Denies rash Neuro Denies abnormal gait, Denies behavioral changes, Denies confusion and Denies lack of coordination Psych Denies behavioral changes and Denies confusion Physical Exam Vital Signs: Last Vital Signs Temp 97.3 F 11/01/24 14:17 Pulse 82 11/01/24 14:17 Resp 18 11/01/24 14:17 BP 130/64 11/01/24 14:17 Pulse Ox 96 11/01/24 14:17 Oxygen Delivery Method Room Air 11/01/24 14:17 BMI result Body Mass Index 24.7 Const General: No confusion Orientation/consciousness: patient oriented x3 and No confusion Limitations: ambulation with walker Resp Effort & Inspection: normal respiratory effort Auscultation: clear to auscultation bilaterally Cardio Jugular venous distension: no JVD Rate: regular rate Rhythm: regular rhythm Heart sounds: S1 normal heart sound present and S2 normal heart sound present Neuro General: patient oriented x3, no focal motor deficits and No confusion Romberg Test: Negative Extrem General: Yes full ROM Psych Appearance: grossly normal Assessment & Plan Assessment & Plan (1) Encounter for Medicare annual wellness exam: Code(s): Z00.00 - Encounter for general adult medical examination without abnormal findings (2) Moderate major depression: Code(s): F32.1 - Major depressive disorder, single episode, moderate (3) Chronic fatigue: Code(s): R53.82 - Chronic fatigue, unspecified Plan Plan Patient was informed and verbally consented to the use of an ambient scribe for clinic note documentation during this visit. 1. Encounter for general adult medical examination without abnormal findings Z00.00 Repeat in a year. 2. Chronic obstructive pulmonary disease, unspecified J44.9 HCC 111 The patient has a history of COPD and is under the care of a gear cutter. 3. Depression, unspecified F32.A The patient experiences depression, for which she is receiving psychiatric care and medication management. 4. Chronic fatigue, unspecified R53.82 Labs ordered. Orders: Orders Comprehensive Nelson. Panel Fast Today R53.82 - Chronic fatigue, unspecified Vitamin B12 and Folate Today E53.8 - Deficiency of other specified B group lonnie mins, R53.82 - Chronic fatigue, unspecified Complete Blood Count Auto Diff Today D64.9 - Anemia, unspecified, R53.82 - Chronic fatigue, unspecified IRON PROFILE Today D64.9 - Anemia, unspecified, R53.82 - Chronic fatigue, unspecified Lipid Panel Today E78.5 - Hyperlipidemia, unspecified Vitamin D 25-OH Total Today E55.9 - Vitamin D deficiency, unspecified, R53.82 - Chronic fatigue, unspecified Thyroid Stimulating Hormone Today R53.82 - Chronic fatigue, unspecified Quality Reporting (2019) Depression/Bipolar (159/160/161/177) PHQ-9: Total score: 14 Coding Level of Care Code Medicare Subsequent (G0439) Est Pt Level 3 (92829) Diagnoses Encounter for Medicare annual wellness exam Z00.00 Moderate major depression F32.1 Chronic fatigue R53.82 Additional Codes PHQ-9 - 47231 - PHQ-9 Billing: Yes ([id number]) Time Spent (min) 36
--- OUTSIDE RECORDS SUMMARY | 2024-11-01 17:53 | XMS_ITS | Encounter Summary ---
Author Organization [facility] Address [address] [place] [id number] Care Team Providers Care Jet Handler Name Role Phone Unavailable Primary Care Provider Unavailabl e Reason for Referral * Consultation (Routine) - Closed Specialty Diagnoses / Procedures Referred By Hardik t Referred To Contact Pulmonary Disease Diagnoses Drug-induced asthma (HC CODE) Dane Juarez MD Phone: tel: fax: [facility] [address] [place] [address], 2nd floor [facility], [address] [place] [address] Phone: tel: fax: Referral ID Status Reason Start Date Expiration Date V isits Requested Visits Authorized [id number] Closed Specialty Services Required 06/19/2014 06/19/2015 1 1 Encounter Details Date Type Department Care Team ([facility] Contact Info) Description 06/19/2014 Transcribed Orders Referral Link Providers [address] [place] [address] System, Provider Not In Cough variant asthma [...]
--- OUTSIDE RECORDS SUMMARY | 2024-11-01 17:53 | XMS_ITS | Patient Health Record ---
Author Organization [facility] Address [address] [place] [id number] Care Team Providers Care Newspaper Correspondent Name Role Phone Janny Meadows Primary Care [...] Problem Status W/U Status Risk Notes Problem [id number] Colon cancer screening (Z12.11) Active confirmed Problem [id number] Gastroesophageal reflux disease, esophagitis presence not specified (K21.9) Active confirmed Problem Gastroesophageal reflux disease (348446544) GERD without esophagitis (K21.9) Active confirmed Plan Of Treatment Future Test Test Name Order Date UPPER GI ENDOSCOPY 10/22/2017 COLONOSCOPY 10/22/2017 Insurance Providers Payer Name Payer Address Payer Phone Subscriber Number Group Number Insured Name Patient Relationship to Insured Coverage Start Date Coverage End Date MEDICARE OF [place] [address] [place] [address] [id number] BOB LEMUS Self - patient is the insured MEDICAID OF [facility] [address] [place] [address] [phone] [id number] BOB LEMUS Self - patient is the insured Medical (General) History Medical History History ICD Code elevated cholesterol asthma overactive bladder gastroesophageal reflux disease arthritis fatty liver acid reflux Surgical History Surgery Date(Month/Year) partial hysterectomy upper endoscopy 02/23/18, norm al, no Niño's esophagus or H. pylori on biopsy colonoscopy 02/23/18, normal, ten-year fol lowup recommended
--- OUTSIDE RECORDS SUMMARY | 2024-11-01 17:53 | XMS_ITS | Clinical Summary ---
Author Organization [facility] [address] Address [address] [place] [address] Care Team Providers Care Sde Name Role Phone Unavailable Primary Care Provider [...] Date Diagnosed Date Severe persistent asthma, uncomplicated (HC Code ) 03/01/2015 Gastroesophageal reflux disease without esophagi tis 03/01/2015 Immunizations Immunization Administration Dates Next Due Influenza, split virus, [...] 86 01/21/2016 2:19 PM EST Temperature 36.3 C (97.3 F) 01/21/2016 2:19 PM EST Respiratory Rate 16 01/21/2016 2:19 PM EST [...] screening 1999 Colon cancer screening, Colonoscopy 11/27/2004 Pneumococcal Vaccine (50+ years) (1 of 1 - PCV) 11/27/2009 Shingles vaccine (Shingrix) (1 of 2 - Shingrix (RZV) 2 Dose Standard Series) 11/27/2009 Diabetes screening 10/09/2017 10/09/2014, 08/07/2014 Influenza vaccine 09/15/2024 10/30/2015 Covid-19 vaccine series (1 - season) 2024 RSV Immunization (1 - 1-dose 75+ series) 11/27/2034 Meningococcal B Vaccine Aged Out No l onger eligible based on patient's age to complete this topic Meningococcal Vaccine Aged Out No keegan jeanette eligible based on patient's age to complete this topic Procedures Procedure Name Priority Date/Time Associated Diagnosis Comments BASIC METABOLIC PANEL Urgent 10/09/2014 1:25 PM EDT Cough from Last 3 Months or Most Recently Relevant to Health Maintenance Results * (ABNORMAL) Basic metabolic panel (10/09/2014 1:25 PM EDT) Glucose 93 70 - 100 mg/dL [facility] BUN 23(H) 7 - 20 mg/dL [facility] Creatinine 0.5 0.5 - 1.2 mg/dL [facility] BUN/Creatinine Ratio 46.0(H) 10.0 - 20.0 [facility] Anion Gap 17(H) 7 - 16 [facility] CO2 20.2(L) 22.0 - 30.0 mmol/L [facility] Chloride 105 96 - 106 mmol/L [facility] Sodium 142 135 - 145 mmol/L [facility] Potassium 4.3 3.3 - 5.0 mmol/L [facility] Calcium 9.7 8.8 - 10.2 mg/dL [facility] Blood specimen (specimen) 10/09/2014 1:25 PM EDT us Jonatan Delgado MD LAB BLOOD ORDERABL ES Final Result [facility] [address] [place] [id number] from Last 3 Months or Most Recently Relevant to Health Maintenance Insurance [id number] MEDICAID MEDICARE [id number] MEDICAID MEDICARE [id number] MEDICAID MEDICARE [id number] MEDICAID MEDICARE
== END 2024-11-01 15:33 | disposition home or self-care (01) ==
LOC: HO.HMCH 14:09
PROVIDERS: PCP Internal Medicine; Visit Provider Internal Medicine
DX: Z00.00 Encounter for general adult medical examination without abnormal findings (principal); F32.1 Major depressive disorder, single episode, moderate; R53.82 Chronic fatigue, unspecified

== ENCOUNTER → 2024-11-01 14:08 | Outpatient (BNVA) | payer MEDICARE, MEDICAID, SELFPAY | PROVIDERS: PCP Internal Medicine; Visit Provider Internal Medicine | DX: Z00.00 Encounter for general adult medical examination without abnormal findings (principal); I10 Essential (primary) hypertension; J44.9 Chronic obstructive pulmonary disease, unspecified; K21.9 Gastro-esophageal reflux disease without esophagitis; F32.1 Major depressive disorder, single episode, moderate; R53.82 Chronic fatigue, unspecified; E78.5 Hyperlipidemia, unspecified; D64.9 Anemia, unspecified; E55.9 Vitamin D deficiency, unspecified | CPT/HCPCS: 96127; 99212 ==

== ENCOUNTER 2024-11-09 10:20 | Outpatient (REF) | payer MEDICARE, MEDICAID, SELFPAY ==
[2024-11-09 10:34] LABS: MANUAL DIFF FLAG NO
[2024-11-09 11:23] LABS: Hematocrit 42.0 % (37.0-47.0); Hemoglobin 13.7 g/dl (12.0-16.0); Imm Gran Abs Auto 0.02 X10*3/uL (0.00-0.03); Imm Gran Pct Auto 0.3 % (0.0-0.4); Lymphocytes Absolute Auto 2.1 X10*3/uL (1.2-4.9); Mean Corpuscular HGB Conc 32.6 g/dl (31.0-35.0); Mean Corpuscular Hemoglobin 29.1 pg (27.0-33.0); Mean Corpuscular Volume 89.4 fL (80.0-98.0); NRBC Abs Auto 0.000 X10*3/uL (0.0-0.012); NRBC Pct Auto 0.0 /100WBC (0.0-0.2); Platelet Count 272 X10*3/uL (160-400); Red Blood Count 4.70 X10*6/uL (4.20-5.50); White Blood Count 6.5 X10*3/uL (4.8-10.8)
[2024-11-09 12:42] LABS: Folate 14.0 ng/mL (> or = 4.0); Vitamin B12 537 pg/mL (200-900)
[2024-11-09 12:54] LABS: Alanine Aminotransferase 37 U/L (0-31); Albumin Level 4.6 g/dL (3.5-5.0); Alkaline Phosphatase 125 U/L (39-117); Anion Gap 11 (12-20); Aspartate Amino Transferase 25 U/L (5-31); Blood Urea Nitrogen 20 mg/dL (9-16); Calcium 9.4 mg/dL (8.4-10.2); Carbon Dioxide 29 mmol/L (22-29); Chloride 109 mmol/L (96-108); Cholesterol 199 mg/dL (<200); Estimated Glomerular Filt Rate > 60; HDL Cholesterol 59 mg/dL (>40); Iron 82 mcg/dL (30-160); Percent Iron Saturation 27 % (15-50); Potassium 4.2 mmol/L (3.3-5.1); Sodium 145 mmol/L (135-145); Total Iron Binding Capacity 303 mcg/dL (228-428); Total Protein 7.2 g/dL (6.5-8.0); Triglycerides 94 mg/dL (<150); Unsaturated Iron Binding 221 ug/dL
[2024-11-09 13:00] LABS: Thyroid Stimulating Hormone 0.97 uIU/mL (0.32-4.0)
== END 2024-11-09 10:21 | disposition home or self-care (01) ==
LOC: HO.LAB 10:20
PROVIDERS: PCP Internal Medicine; Visit Provider Internal Medicine
DX: E53.8 Deficiency of other specified B group vitamins (principal); E78.5 Hyperlipidemia, unspecified; R53.82 Chronic fatigue, unspecified; D64.9 Anemia, unspecified; E55.9 Vitamin D deficiency, unspecified
CPT/HCPCS: 36415; 80053; 80061; 82306; 82607; 82746; 83540; 84443; 85025